=== PATIENT | female | born 1945 | race Caucasian/White ===

== ENCOUNTER 2024-09-07 08:39 | Inpatient (IN) ==
--- NOTE | 2024-09-07 09:02 | Emergency Department Note ---
Impression & Plan Pneumonia, Bronchospasm, Hypoxia ED Provider Note NAME: VJ LATHAM AGE: 78 SEX: F : 1945 ARRIVES VIA: Walk-In INFORMANT: Patient ED PROVIDER(S): Kleber Arce MD CHIEF COMPLAINT: Cough PLAN: Disposition: Admit MEDICAL DECISION MAKING: The patient is a pleasant 78-year-old woman with past medical history of rheumatoid arthritis on methotrexate and hydroxychloroquine as well as with monthly infusions, GERD who presents to Emergency Department via walk-in, accompanied by her for evaluation of ongoing nonproductive cough for the past month where she reports she was seen in this emergency department after a week of symptoms and then had followed up with her primary care doctor last week and had a negative chest x-ray but due to her exam and persistent symptoms was started on doxycycline. She reports she felt some improvement in sinus pressure but denies any change in her cough. She denies any history of environmental or seasonal allergies. She denies any sick contacts. She denies any nausea, vomiting, diarrhea. She denies any fevers or feverishness or chills. On evaluation the patient is no distress, afebrile with heart in the 90s and blood pressure 140s/70s and O2 saturation 94% on room air. Lungs with intermittent wheeze and are otherwise clear bilaterally. She does appear to exhibit some dyspnea when speaking. Otherwise normal work of breathing. EKG without overt acute ischemia. Chest x-ray demonstrates patchy upper lobe airspace opacities further characterized on CT imaging suspicious for pneumonia. WBC, H/H and platelets within normal limits. Chemistry without metabolic acidosis. Electrolytes LFTs without significant abnormality. Positive troponin 3.2, within normal limits. Lipase is normal. Respiratory BioFire was negative. CTA of the chest was performed and was negative for PE but again further characterizes upper lobe airspace opacities with suggestion of developing right upper lobe consolidation. Patient was treated with nasal saline, Flonase, dexamethasone and albuterol MDI and she did feel some improvement. However she was noted to have desaturation to the upper 80s with exertion but initially had recovered to low 90s on room air. However subsequently patient was noted to be hypoxic to 88%. Treatment for pneumonia was initiated with IV ceftriaxone and azithromycin. Initially plan for outpatient follow-up was considered however given the patient's hypoxia which persisted on follow-up ambulatory trial patient does agree with plan for admission for further management. Case was d/w [facility]. Warren [facility] hospitalist who will evaluate the patient for admission. Further management per admitting team. Triage Nursing notes reviewed and agree them. Prior/external medical records reviewed Vital Signs: reviewed Differential diagnosis: Reactive airway disease, pneumonia, pneumothorax, COPD, CHF, infections, cardiac ischemia, pulmonary embolism, musculoskeletal, gastrointestinal, as well as other pathologies. ER treatment provided: See below. Diagnostics interpreted by me: ECG: Normal sinus rhythm, 96 bpm, no ectopy, no overt ST ovation or depression, QTc 434, QRS 82. Cardiac Monitoring: An order for continuous cardiac monitoring was placed and demonstrated Normal sinus rhythm, 96 bpm, no ectopy. Laboratory studies: See below Imaging studies: See below Consultation(s): Dr. Warren [facility] [place] [facility] hospitalist. HPI: The patient is a pleasant 78-year-old woman with past medical history of rheumatoid arthritis on methotrexate and hydroxychloroquine as well as with monthly infusions, GERD who presents to Emergency Department via walk-in, accompanied by her for evaluation of ongoing nonproductive cough for the past month where she reports she was seen in this emergency department after a week of symptoms and then had followed up with her primary care doctor last week and had a negative chest x-ray but due to her exam and persistent symptoms was started on doxycycline. She reports she felt some improvement in sinus pressure but denies any change in her cough. She denies any history of environmental or seasonal allergies. She denies any sick contacts. She denies any nausea, vomiting, diarrhea. She denies any fevers or feverishness or chills. ROS: See above HPI for pertinent positives & negatives. A total of 10 systems reviewed and were otherwise negative. VITALS:See Below PHYSICAL EXAMINATION: GENERAL: Awake, alert, in no distress HENT: Normocephalic, atraumatic. Oropharynx with dry mucous membranes and otherwise unremarkable. EYES: Normal conjunctiva. Sclera non-icteric. NECK: Supple. No nuchal rigidity. FROM. No JVD. RESPIRATORY: Intermittent wheezing otherwise clear to auscultation. Exhibits some dyspnea when speaking. Otherwise normal work of breathing. CARDIAC: Regular rate, normal rhythm. Extremities warm and well perfused. Pulses equal. MUSCULOSKELETAL: Chest examination reveals no tenderness. The back is symmetrical on inspection without obvious abnormality. There is no CVA tenderness to palpation. No joint edema. LOWER EXTREMITIES: Calves are equal size bilaterally and non-tender. No edema. No discoloration. NEURO: Normal sensorium. No sensory or motor deficits noted. SKIN: No rash or jaundice noted. 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 History of skin cancer Medical History Arthritis History of esophageal stricture GERD (gastroesophageal reflux disease) Eli's disease History of Mohs micrographic surgery for skin cancer ON NOSE Macular degeneration "BEGINING STAGES" Anxiety Migraine Hyperlipidemia "BORDERLINE" Hypertension Surgical History History of cataract surgery RT Fusion of spine CERVICAL (GOOD ROM) Family history of reaction to anesthesia MOTHER-SLOW TO WAKE UP H/O tubal ligation History of colonoscopy History of esophagogastroduodenoscopy (EGD) History of tooth extraction History of tonsillectomy and adenoidectomy Family History Other No significant family history Social History Smoking Status: Former smoker Second Hand Exposure: Yes (IN THE PAST ( USED TO SMOKE)); Do You Dip or Chew Tobacco: No; Hx Alcohol Use: No Hx Substance Use: No Preferred Language: Kazakh Communication Ability: Effective Terminal Supervisor Required: No Beliefs That Will Affect Care: None Current Living Situation: Spouse Other Information That Helps Us Care for You: No Feels Safe at Home: Yes Safety Concerns: Feels Safe At This Time Assistive Devices: Glasses Allergies Allergies Allergy/AdvReac Type Severity Reaction Status Date / Time Fxikyge-DSX-[id number] Reductase Allergy Intermediate Muscle Pain Verified 01/12/23 12:54 Inhibitor [Istydjf-Zht-Mrf Reductase Inhibitor] adhesive tape Allergy Mild SKIN Verified 01/12/23 12:54 REDNESS amlodipine [From Norvasc] Allergy Mild Cough Verified 01/12/23 12:54 lisinopril Allergy Mild Cough Verified 01/12/23 12:54 Home Meds Home Medications Medication Instructions Recorded Confirmed aspirin 81 mg tablet,delayed 81 mg PO QAM 07/29/21 09/07/24 release metoprolol succinate 25 mg 25 mg PO QAM 07/29/21 09/07/24 tablet,extended release 24 hr omeprazole 20 mg tablet,delayed 20 mg PO QAM 07/29/21 09/07/24 release sertraline 25 mg tablet 25 mg PO QAM 07/29/21 09/07/24 vitamins A,C,A-hypb-mjatcs 4,296 1 cap PO BID 07/29/21 09/07/24 mcg-226 mg-90 mg capsule (PreserVision AREDS) cholecalciferol (vitamin D3) 25 25 mcg PO DAILY 01/12/23 09/07/24 mcg (1,000 unit) capsule cyanocobalamin (vitamin B-12) 1,000 mcg PO DAILY 01/12/23 09/07/24 1,000 mcg tablet (Vitamin B-12) hydroxychloroquine 200 mg tablet 400 mg PO HS 01/12/23 09/07/24 metronidazole 0.75 % topical cream 1 applic topical DAILY 01/12/23 09/07/24 albuterol sulfate 90 mcg/actuation 1 - 2 inh inhalation .Q6-8H PRN 09/07/24 09/07/24 aerosol inhaler Other doxycycline hyclate 100 mg capsule 100 mg PO BID 09/07/24 09/07/24 folic acid 1 mg tablet 1 mg PO QAM 09/07/24 09/07/24 levothyroxine 75 mcg tablet 88 mcg PO QAM 09/07/24 09/07/24 methotrexate sodium 2.5 mg tablet 2.5 mg PO UD 09/07/24 09/07/24 Previous Rx's Medication Instructions Recorded prednisone 20 mg tablet 60 mg (3 x 20 mg) PO DAILY 4 days 09/07/24 #12 tabs Results & Data (ED) Vital Signs Vital Signs - 24 hr 09/07/24 08:40 09/07/24 08:40 09/07/24 08:41 Temperature 36.4 C L Temperature Source Oral Pulse Rate 96 H Pulse Rate [Exercises] Pulse Rate [Recovery] Pulse Rate from SpO2 Sensor Respiratory Rate 22 Respiratory Rate [Exercises] Respiratory Rate [Recovery] Respiratory Effort / Characteristics Non-Labored Spontaneous SOB on Exertion Respiratory Depth Normal Respiratory Pattern Regular Blood Pressure 145/74 H Blood Pressure Mean 97 Pulse Oximetry 94 Pulse Oximetry [Exercises] Pulse Oximetry [Recovery] Oxygen Delivery Method Room Air Room Air Room Air Oxygen Flow Rate Sepsis Recent Fever Within 48 Hours No Sepsis New/Unexplained Change in Mental Status No Sepsis Action Taken by Nursing No Action Required 09/07/24 09:04 09/07/24 10:13 09/07/24 10:36 Temperature Temperature Source Pulse Rate 94 H 84 Pulse Rate [Exercises] Pulse Rate [Recovery] Pulse Rate from SpO2 Sensor Respiratory Rate 27 H Respiratory Rate [Exercises] 22 Respiratory Rate [Recovery] 20 Respiratory Effort / Characteristics Respiratory Depth Respiratory Pattern Blood Pressure Blood Pressure Mean Pulse Oximetry Pulse Oximetry [Exercises] 88 L Pulse Oximetry [Recovery] 94 Oxygen Delivery Method Room Air Oxygen Flow Rate Sepsis Recent Fever Within 48 Hours Sepsis New/Unexplained Change in Mental Status Sepsis Action Taken by Nursing 09/07/24 11:30 09/07/24 12:30 09/07/24 12:38 Temperature Temperature Source Pulse Rate 86 77 Pulse Rate [Exercises] Pulse Rate [Recovery] Pulse Rate from SpO2 Sensor 85 78 Respiratory Rate 24 21 Respiratory Rate [Exercises] Respiratory Rate [Recovery] Respiratory Effort / Characteristics Respiratory Depth Respiratory Pattern Blood Pressure 142/77 H Blood Pressure Mean 113 Pulse Oximetry 90 95 Pulse Oximetry [Exercises] Pulse Oximetry [Recovery] Oxygen Delivery Method Oxygen Flow Rate Sepsis Recent Fever Within 48 Hours Sepsis New/Unexplained Change in Mental Status Sepsis Action Taken by Nursing 09/07/24 13:09 09/07/24 13:18 09/07/24 13:21 Temperature Temperature Source Pulse Rate 81 78 Pulse Rate [Exercises] Pulse Rate [Recovery] Pulse Rate from SpO2 Sensor 81 78 Respiratory Rate 22 17 Respiratory Rate [Exercises] Respiratory Rate [Recovery] Respiratory Effort / Characteristics Respiratory Depth Respiratory Pattern Blood Pressure Blood Pressure Mean Pulse Oximetry 95 92 92 Pulse Oximetry [Exercises] Pulse Oximetry [Recovery] Oxygen Delivery Method Room Air Oxygen Flow Rate Sepsis Recent Fever Within 48 Hours Sepsis New/Unexplained Change in Mental Status Sepsis Action Taken by Nursing 09/07/24 13:30 09/07/24 13:36 09/07/24 13:41 Temperature Temperature Source Pulse Rate Pulse Rate [Exercises] 91 H Pulse Rate [Recovery] 81 Pulse Rate from SpO2 Sensor Respiratory Rate Respiratory Rate [Exercises] 26 H Respiratory Rate [Recovery] 26 H Respiratory Effort / Characteristics Respiratory Depth Respiratory Pattern Blood Pressure 139/78 Blood Pressure Mean 102 Pulse Oximetry 94 Pulse Oximetry [Exercises] 86 L Pulse Oximetry [Recovery] 90 Oxygen Delivery Method Room Air Nasal Cannula Oxygen Flow Rate 2 Sepsis Recent Fever Within 48 Hours Sepsis New/Unexplained Change in Mental Status Sepsis Action Taken by Nursing 09/07/24 13:42 09/07/24 13:55 09/07/24 13:57 Temperature Temperature Source Pulse Rate 89 81 79 Pulse Rate [Exercises] Pulse Rate [Recovery] Pulse Rate from SpO2 Sensor 91 H 80 Respiratory Rate 23 25 H Respiratory Rate [Exercises] Respiratory Rate [Recovery] Respiratory Effort / Characteristics Respiratory Depth Respiratory Pattern Blood Pressure Blood Pressure Mean Pulse Oximetry 93 95 Pulse Oximetry [Exercises] Pulse Oximetry [Recovery] Oxygen Delivery Method Oxygen Flow Rate Sepsis Recent Fever Within 48 Hours Sepsis New/Unexplained Change in Mental Status Sepsis Action Taken by Nursing 09/07/24 14:00 09/07/24 14:03 Temperature Temperature Source Pulse Rate 81 Pulse Rate [Exercises] Pulse Rate [Recovery] Pulse Rate from SpO2 Sensor 80 Respiratory Rate 26 H Respiratory Rate [Exercises] Respiratory Rate [Recovery] Respiratory Effort / Characteristics Respiratory Depth Respiratory Pattern Blood Pressure 140/79 Blood Pressure Mean 109 Pulse Oximetry 95 Pulse Oximetry [Exercises] Pulse Oximetry [Recovery] Oxygen Delivery Method Oxygen Flow Rate Sepsis Recent Fever Within 48 Hours Sepsis New/Unexplained Change in Mental Status Sepsis Action Taken by Nursing Laboratory Data Attestation: I reviewed the patient's lab results. 09/07/24 09:13 09/07/24 09:13 Lab Results 09/07/24 09/07/24 Range/Units 09:13 10:29 WBC 7.56 (4.8-10.8) K/ul RBC 4.11 L (4.20-5.40) M/uL Hgb 13.1 (12.0-16.0) g/dl Hct 39.1 (37.0-47.0) % MCV 95.1 (80.0-100.0) fL MCH 31.9 (25.0-34.0) pg MCHC 33.5 (32.0-36.0) g/dL RDW Std Deviation 48.3 H (36.4-46.3) fL RDW Coeff of Ronda 14.0 (11.5-14.5) % Plt Count 225 (130-400) K/uL MPV 9.9 (9.4-12.4) fL Immature Gran % (Auto) 0.9 % Neut % (Auto) 66.0 % Lymph % (Auto) 16.5 % Summers % (Auto) 15.2 % Eos % (Auto) 0.7 % Baso % (Auto) 0.7 % Neut # (Auto) 4.99 (1.40-6.50) K/uL Lymph # (Auto) 1.25 (1.20-3.40) K/uL Summers # (Auto) 1.15 H (0.11-0.59) K/uL Eos # (Auto) 0.05 (0.00-0.50) K/uL Baso # (Auto) 0.05 (0.00-0.20) K/uL Immature Gran # (Auto) 0.07 (0.01-0.20) K/uL PT Cancelled 11.0 INR Cancelled 1.0 Sodium 137 (136-145) mmol/L Potassium 3.9 (3.5-5.1) mmol/L Chloride 105 (98-107) mmol/L Carbon Dioxide 23 (21-32) mmol/L Anion Gap 9 (3-11) BUN 9 (6-23) mg/dl Creatinine 0.66 (0.6-1.2) mg/dl Est Cr Clr Drug Dosing 69.7 ml/min eGFR 90.29 BUN/Creatinine Ratio 13.6 (10-20) Glucose 105 H (70-99(Fasting)) mg/dl Calcium 9.5 (8.6-10.3) mg/dl Magnesium 2.1 (1.7-2.4) mg/dl Total Bilirubin 0.6 (0.2-1.0) mg/dl AST 23 (13-39) U/L ALT 16 (7-52) U/L Alkaline Phosphatase 49 (34-104) U/L Troponin I High Sens 3.2 (0-14) pg/ml Total Protein 6.6 (6.0-8.3) gm/dl Albumin 4.0 (3.4-5.0) gm/dl Globulin 2.6 (2.5-4.0) gm/dl Albumin/Globulin Ratio 1.5 (0.9-2) Lipase 21 (11-82) U/L Adenovirus (PCR) Not Detected (NotDetected) B. pertussis DNA (PCR) Not Detected (NotDetected) B.parapertussis DNA PCR Not Detected (NotDetected) C. pneumoniae DNA (PCR) Not Detected (NotDetected) Coronavirus OC43 (PCR) Not Detected (NotDetected) Coronavirus HKU1 (PCR) Not Detected (NotDetected) Coronavirus 229E (PCR) Not Detected (NotDetected) SARS-CoV-2 (PCR) Not Detected (NotDetected) Coronavirus NL63 (PCR) Not Detected (NotDetected) Human Metapneumovir PCR Not Detected (NotDetected) Influenza Type A (PCR) Not Detected (NotDetected) Influenza Type B (PCR) Not Detected (NotDetected) M. pneumoniae (PCR) Not Detected (NotDetected) Parainfluenza 1 (PCR) Not Detected (NotDetected) Parainfluenza 2 (PCR) Not Detected (NotDetected) Parainfluenza 3 (PCR) Not Detected (NotDetected) Parainfluenza 4 (PCR) Not Detected (NotDetected) RSV (PCR) Not Detected (NotDetected) Entero/Rhino (PCR) Not Detected (NotDetected) Administered Medications Acetaminophen (Acetaminophen 325 Mg Tab) 650 mg PO Q4H PRN PRN Reason: Pain or Fever Stop: 10/07/24 14:22 Last Admin: 09/07/24 21:12 Dose: 650 mg Documented By: SMD Acetylcysteine (Acetylcysteine 20% Inhal Soln 4ml Dispensed By Resp.) 5 ml INH Q12H ESPERANZA Stop: 10/07/24 14:44 Last Admin: 09/07/24 17:17 Dose: Not Given Documented By: EAM Albuterol (Albuterol 0.5% Neb Soln 2.5 Mg/0.5 Ml Vial) 2.5 mg NEB QID PRN; Protocol PRN Reason: sob, wheezing Stop: 10/07/24 20:59 Last Admin: 09/07/24 20:52 Dose: 2.5 mg Documented By: LGB Benzonatate (Benzonatate 100 Mg Capsule) 100 mg PO TID ESPERANZA Stop: 10/07/24 20:59 Last Admin: 09/07/24 21:13 Dose: 100 mg Documented By: SEBASTIAN Guaifenesin (Guaifenesin 600 Mg Tabcr) 600 mg PO Q12 ESPERANZA Stop: 10/07/24 20:59 Last Admin: 09/07/24 21:12 Dose: 600 mg Documented By: SEBASTIAN Heparin Sodium (Porcine) (Heparin Sod 5,000 Unit/0.5 Ml Vial) 5,000 units SQ Q12 ESPERANZA Stop: 10/07/24 20:59 Last Admin: 09/07/24 21:14 Dose: 5,000 units Documented By: SEBASTIAN Hydroxychloroquine Sulfate (Hydroxychloroquine Sulfate 200 Mg Tab) 400 mg PO HS ESPERANAZ Stop: 10/07/24 20:59 Last Admin: 09/07/24 21:13 Dose: 400 mg Documented By: SEBASTIAN Lactobacillus Acidophilus (Advanced Probiotic 625 Mg Capsule) 1,250 mg PO DAILY ESPERANZA Stop: 10/07/24 14:29 Last Admin: 09/07/24 21:13 Dose: 1,250 mg Documented By: SEBASTIAN Sodium Chloride (Sodium Chlor 7% 4 Ml Neb) 4 ml NEB BIDR ESPERANZA Stop: 10/07/24 14:39 Last Admin: 09/07/24 20:52 Dose: 4 ml Documented By: Admin: 09/07/24 17:17 Dose: Not Given Documented By: EAM Discontinued Medications Albuterol (Albuterol Hfa 8 Gm Inhaler) 2 puffs INH NOW ONE Stop: 09/07/24 09:23 Last Admin: 09/07/24 09:29 Dose: 2 puffs Documented By: ROMINA Azithromycin (Azithromycin 250 Mg Tab) 500 mg PO NOW ONE Stop: 09/07/24 12:27 Last Admin: 09/07/24 12:40 Dose: 500 mg Documented By: CEF Dexamethasone Sodium Phosphate (DexamethasonePf 10 Mg/Ml Vial) 10 mg IV NOW ONE Stop: 09/07/24 09:23 Last Admin: 09/07/24 09:29 Dose: 10 mg Documented By: ROMINA Fluticasone Propionate (Fluticasone Propionate Na Spr 16 Gm Btl) 2 sprays NA NOW STA Stop: 09/07/24 09:21 Last Admin: 09/07/24 10:11 Dose: 2 sprays Documented By: ROMINA Ceftriaxone Sodium (Rocephin) 2,000 mg in 50 mls @ 100 mls/hr IV NOW STA Stop: 09/07/24 12:55 Last Infusion: 09/07/24 13:11 Dose: Infused Documented By: Admin: 09/07/24 12:39 Dose: 100 mls/hr Documented By: CEF Ioversol (Optiray 320 125ml) 120 ml IV ONCE ONE Stop: 09/07/24 10:05 Last Admin: 09/07/24 10:04 Dose: 120 ml Documented By: ARABELLA Loratadine (Loratadine 10 Mg Tab) 10 mg PO NOW ONE Stop: 09/07/24 09:21 Last Admin: 09/07/24 09:29 Dose: 10 mg Documented By: ROMINA Sodium Chloride (Sodium Chloride 0.65% Na Soln 45 Ml ([place])) 2 sprays NA NOW ONE Stop: 09/07/24 09:21 Last Admin: 09/07/24 09:29 Dose: 2 sprays Documented By: ROMINA Imaging Data Radiologist's Impression: Chest X-Ray 09/07/24 08:53 XR chest 1V portable CLINICAL HISTORY: Chest pain, nonspecific COMPARISON STUDY: Chest radiograph August 22, 2024. FINDINGS: Lung volumes are mildly diminished but there is no pneumothorax or pleural effusion. Cardiomediastinal silhouette is stable. Subtle interstitial thickening has slightly increased. There may be patchy bilateral upper lung opacities. IMPRESSION: Apparent patchy bilateral upper lung opacities which may reflect an infectious process. Radiographic follow-up to ensure resolution is recommended ACT 112: Negative or not required by law. Electronically signed by: Sriram Herr M.D. 09/07/2024 9:27 AM Chest CTA 09/07/24 09:16 CT ANGIOGRAPHY OF THE CHEST, PULMONARY EMBOLUS PROTOCOL CLINICAL HISTORY: sob, tachycardia, chest tightness, cough, r/o PE COMPARISON STUDY: Chest radiograph August 22, 2024 and chest radiograph performed earlier today. TECHNIQUE: Following IV administration of 120 mL of Optiray, helical axial images of the chest were obtained utilizing the pulmonary embolus protocol. Maximal intensity projections and sagittal and coronal reformats were viewed on an independent 3D workstation. IV contrast was administered without complication. Automated exposure control was utilized for the study. A dose lowering technique was utilized adhering to the principles of ALARA. CT DOSE: 863.64 mGy.cm FINDINGS: No pulmonary emboli are identified. There is no thoracic aortic dissection. Size of the heart is normal. No enlarged mediastinal, hilar or axillary lymph nodes are present. There is no pneumothorax or pleural effusion. Upper lobe predominant groundglass opacities within the lungs are noted with areas of developing consolidation within the right upper lobe. This no central obstructing mass is present. There is no cavitation. There is no pneumothorax or pleural effusion. Hepatic steatosis is incidentally noted. There is a 1.5 cm splenule. IMPRESSION: 1. No pulmonary emboli identified. 2. Upper lobe predominant groundglass opacities with areas of developing consolidation within the right upper lobe suggestive of an infectious process. Radiographic follow-up to ensure resolution is recommended. 3. Hepatic steatosis. ACT 112: Negative or not required by law. Electronically signed by: Sriram Herr M.D. 09/07/2024 10:24 AM Discharge Plan Visit Data Chief Complaint: Shortness of Breath/Dyspnea Stated Complaint: SOB, COUGHING 4WKS ED Provider: Kleber Arce Discharge Problem: Pneumonia, Bronchospasm, Hypoxia Patient Disposition: Admitted As Inpatient Discharge Instructions Interventions: ED Discharge Assessment Last Done: 09/07/24 16:28 Discharge Problem: Pneumonia Qualifiers: Pneumonia type: due to unspecified organism Laterality: bilateral Lung location: upper lobe of lung Qualified Code(s): J18.9 - Pneumonia, unspecified organism
[2024-09-07] MEDS: dexAMETHasone**PF** 10 MG/ML VIAL IV ONE (09:29)
[2024-09-07] MEDS: LORATADINE 10 MG TAB PO ONE (09:29)
[2024-09-07] MEDS: SODIUM CHLORIDE 0.65% NA SOLN 45 ML (OCEAN) ONE (09:29)
[2024-09-07] MEDS: ALBUTEROL HFA 8 GM INHALER INH ONE (09:29)
--- NOTE | 2024-09-07 09:29 | XRay Report ---
XR chest 1V portable CLINICAL HISTORY: Chest pain, nonspecific COMPARISON STUDY: Chest radiograph August 22, 2024. FINDINGS: Lung volumes are mildly diminished but there is no pneumothorax or pleural effusion. Cardio mediastinal silhouette is stable. Subtle interstitial thickening has slightly increased. There may be patchy bilateral upper lung opacities. IMPRESSION: Apparent patchy bilateral upper lung opacities which may reflect an infectious process. Radiographic follow-up to ensure resolution is recommended ACT 112: Negative or not required by law. Electronically signed by: Sriram Herr M.D. 09/07/2024 9:27 AM
[2024-09-07 09:41] LABS: Basophils # (auto) 0.05 K/uL (0.00-0.20); Basophils % (auto) 0.7 %; Eosinophils # (auto) 0.05 K/uL (0.00-0.50); Eosinophils % (auto) 0.7 %; Hematocrit (blood only) 39.1 % (37.0-47.0); Hemoglobin 13.1 g/dl (12.0-16.0); Immature Granulocytes # (auto) 0.07 K/uL (0.01-0.20); Immature Granulocytes % (auto) 0.9 %; Lymphocytes # (auto) 1.25 K/uL (1.20-3.40); Lymphocytes % (auto) 16.5 %; Mean Corpuscular Hemoglobin 31.9 pg (25.0-34.0); Mean Corpuscular Hgb Conc 33.5 g/dL (32.0-36.0); Mean Corpuscular Volume 95.1 fL (80.0-100.0); Mean Platelet Volume 9.9 fL (9.4-12.4); Monocytes # (auto) 1.15 K/uL (0.11-0.59); Monocytes % (auto) 15.2 %; Neutrophils # (auto) 4.99 K/uL (1.40-6.50); Platelet Count 225 K/uL (130-400); RDW Standard Deviation 48.3 fL (36.4-46.3); Red Blood Count 4.11 M/uL (4.20-5.40); White Blood Count 7.56 K/ul (4.8-10.8)
[2024-09-07 09:53] LABS: Albumin Globulin Ratio 1.5 (0.9-2); BUN Creatinine Ratio 13.6 (10-20); Bilirubin,Total 0.6 mg/dl (0.2-1.0); Calcium 9.5 mg/dl (8.6-10.3); Creatinine Clr Calc Pharmacy 69.7 ml/min; Globulin 2.6 gm/dl (2.5-4.0); Magnesium 2.1 mg/dl (1.7-2.4); Potassium 3.9 mmol/L (3.5-5.1); Total Protein 6.6 gm/dl (6.0-8.3)
[2024-09-07 10:00] LABS: Troponin I High Sensitivity 3.2 pg/ml (0-14)
[2024-09-07] MEDS: OPTIRAY 320 125ml IV ONE (10:04)
[2024-09-07] MEDS: FLUTICASONE PROPIONATE NA SPR 16 GM BTL STA (10:11)
[2024-09-07 10:22] LABS: Adenovirus PCR Not Detected (NotDetected); Bordetella parapertussis PCR Not Detected (NotDetected); Bordetella pertussis PCR Not Detected (NotDetected); Chlamydia pneumoniae PCR Not Detected (NotDetected); Coronavirus 229E PCR Not Detected (NotDetected); Coronavirus CoV-2 (COVID19)PCR Not Detected (NotDetected); Coronavirus HKU1 PCR Not Detected (NotDetected); Coronavirus NL63 PCR Not Detected (NotDetected); Coronavirus OC43PCR Not Detected (NotDetected); Human Metapneumovirus PCR Not Detected (NotDetected); Influenza A PCR Not Detected (NotDetected); Influenza B PCR Not Detected (NotDetected); Mycoplasma pneumoniae PCR Not Detected (NotDetected); Parainfluenza Virus 1 PCR Not Detected (NotDetected); Parainfluenza Virus 2 PCR Not Detected (NotDetected); Parainfluenza Virus 3 PCR Not Detected (NotDetected); Parainfluenza Virus 4 PCR Not Detected (NotDetected); Respiratory Syncytial VirusPCR Not Detected (NotDetected); Rhinovirus/Enterovirus PCR Not Detected (NotDetected)
--- NOTE | 2024-09-07 10:25 | CT Scan Report ---
CT ANGIOGRAPHY OF THE CHEST, PULMONARY EMBOLUS PROTOCOL CLINICAL HISTORY: sob, tachycardia, chest tightness, cough, r/o PE COMPARISON STUDY: Chest radiograph August 22, 2024 and chest radiograph performed earlier today. TECHNIQUE: Following IV administration of 120 mL of Optiray, helical axial images of the chest were o btained utilizing the pulmonary embolus protocol. Maximal intensity projections and sagittal and cor onal reformats were viewed on an independent 3D workstation. IV contrast was administered without co mplication. Automated exposure control was utilized for the study. A dose lowering technique was ut ilized adhering to the principles of ALARA. CT DOSE: 863.64 mGy.cm FINDINGS: No pulmonary emboli are identified. There is no thoracic aortic dissection. Size of the he art is normal. No enlarged mediastinal, hilar or axillary lymph nodes are present. There is no pneumo thorax or pleural effusion. Upper lobe predominant groundglass opacities within the lungs are noted w ith areas of developing consolidation within the right upper lobe. This no central obstructing mass i s present. There is no cavitation. There is no pneumothorax or pleural effusion. Hepatic steatosis is incidentally noted. There is a 1.5 cm splenule. IMPRESSION: 1. No pulmonary emboli identified. 2. Upper lobe predominant groundglass opacities with areas of developing consolidation within the rig ht upper lobe suggestive of an infectious process. Radiographic follow-up to ensure resolution is rec ommended. 3. Hepatic steatosis. ACT 112: Negative or not required by law. Electronically signed by: Sriram Herr M.D. 09/07/2024 10:24 AM
[2024-09-07] MEDS: cefTRIAXone SODIUM 2,000 MG/50 ML BAG IV STA (12:39)
[2024-09-07] MEDS: AZITHROMYCIN 250 MG TAB PO ONE (12:40)
[2024-09-07] MEDS ORDERED: ALUMINUM/MAGNESIUM SUSP 30 ML UDC PO PRN (14:23)
[2024-09-07] MEDS ORDERED: MAGNESIUM HYDROXIDE SUSP 30 ML UDC PO PRN (14:23)
--- NOTE | 2024-09-07 14:43 | History & Physical Report ---
Date of Service September 07, 2024 Assessment & Plan (1) Right upper lobe pneumonia: Plan 78-year-old lady will be managed for the following: Right upper lobe pneumonia Patient presenting with cough for about a month time, failure of outpatient treatment. See HPI. Admitting WBC WNL, respiratory viral panel negative. Admitting CXR: Patchy bilateral upper lung opacities suggestive of infectious process. Admitting CT chest: No PE. Bilateral upper lobe opacities with areas of developing consolidation within the right upper lobe suggestive of an infectious process. Patient received azithromycin, Rocephin, steroids in the ED. Patient needing 2 L nasal cannula oxygen at ED. On exam, patient was not bronchospastic, will continue with azithromycin and Rocephin. Will send for sputum culture if patient able to expectorate. Will use hypertonic saline and mucomyst nebs to help w/ expectoration. Mucinex, Tessalon Perles, Incentive spirometer as tolerable.Flonase. Patient not on home oxygen, currently requiring 2 L oxygen, wean down as tolerated. Patient will need repeat CT scan of the chest in about 6 weeks time to document resolution of pneumonia. Patient and her has been made aware about this. If not improving or worsening respiratory status, consider consulting pulmonology Other chronic medical assessment: HTN, HLD, rheumatoid arthritis, rosacea -- > continue with/resume home meds as and when able. Patient's methotrexate on hold because of ongoing infection per patient. DVT prophylaxis: Heparin subcu Full code History of Present Illness Chief Complaint: cough Primary Care Provider: Rosario Gallagher DO 78-year-old lady with PMH of HTN, HLD, acquired hypothyroidism, Raynaud's disease without gangrene, GERD, seborrheic dermatitis, generalized osteoarthritis, seronegative rheumatoid arthritis, rosacea, squamous cell carcinoma skin presented to the ED 09/07 with complaint of worsening cough and shortness of breath. Patient reports having cough since about 4 weeks, she was evaluated in the ED around 2.5 weeks ago and was discharged on Tessalon Perles/ inhalers/prednisone, patient reports she felt better for about 3 days, then she started worsening with cough and shortness of breath. She visited her PCP last Tuesday and was prescribed doxycycline and Mucinex. She continued to have worsening cough and shortness of breath with activity, hence decided to present to the ED. She had taken about 4 days of doxycycline prior to arrival. Patient denies fever or sore throat, reports mostly dry cough. Patient denies nausea, vomiting, acute changes in her bowel or bladder habit, abdominal pain, chest pain, palpitation. Patient does report feeling weaker, getting occasional headache and dizziness. Patient reports quitting smoking about 50 years ago, denies alcohol and recreational drug use. Full code as per my discussion with the patient. Medications reviewed with the patient at the bedside. Plan of care discussed with the patient and her at bedside in detail, they voiced understanding. Allergies Allergy/AdvReac Type Severity Reaction Status Date / Time Zdjhqjs-CKE-ZuG Reductase Allergy Intermediate Muscle Pain Verified 01/12/23 12:54 Inhibitor [Tuidbnb-Fpy-Lut Reductase Inhibitor] adhesive tape Allergy Mild SKIN Verified 01/12/23 12:54 REDNESS amlodipine [From Norvas] Allergy Mild Cough Verified 01/12/23 12:54 lisinopril Allergy Mild Cough Verified 01/12/23 12:54 Home Medications Medication Instructions Recorded Confirmed Type aspirin 81 mg tablet,delayed 81 mg PO QAM 07/29/21 09/07/24 History release metoprolol succinate 25 mg 25 mg PO QAM 07/29/21 09/07/24 History tablet,extended release 24 hr omeprazole 20 mg tablet,delayed 20 mg PO QAM 07/29/21 09/07/24 History release sertraline 25 mg tablet 25 mg PO QAM 07/29/21 09/07/24 History vitamins A,C,W-pcie-pcreoq 4,296 1 cap PO BID 07/29/21 09/07/24 History mcg-226 mg-90 mg capsule (PreserVision AREDS) cholecalciferol (vitamin D3) 25 25 mcg PO DAILY 01/12/23 09/07/24 History mcg (1,000 unit) capsule cyanocobalamin (vitamin B-12) 1,000 mcg PO DAILY 01/12/23 09/07/24 History 1,000 mcg tablet (Vitamin B-12) hydroxychloroquine 200 mg tablet 400 mg PO HS 01/12/23 09/07/24 History metronidazole 0.75 % topical cream 1 applic topical DAILY 01/12/23 09/07/24 History albuterol sulfate 90 mcg/actuation 1 - 2 inh inhalation .Q6-8H PRN 09/07/24 09/07/24 History aerosol inhaler Other azithromycin 250 mg tablet 250 mg PO DAILY 4 days #4 tabs 09/07/24 Rx cefdinir 300 mg capsule 300 mg PO BID 7 days #14 caps 09/07/24 Rx doxycycline hyclate 100 mg capsule 100 mg PO BID 09/07/24 09/07/24 History folic acid 1 mg tablet 1 mg PO QAM 09/07/24 09/07/24 History levothyroxine 75 mcg tablet 88 mcg PO QAM 09/07/24 09/07/24 History methotrexate sodium 2.5 mg tablet 2.5 mg PO UD 09/07/24 09/07/24 History prednisone 20 mg tablet 60 mg (3 x 20 mg) PO DAILY 4 days 09/07/24 Rx #12 tabs Past Med/Surg History Problem List (Updated 09/07/24 @ 14:44 by Cheryl So MD) Right upper lobe pneumonia Bronchospasm (Acute) Pneumonia (Acute) Nonspecific paroxysmal spell Hypothyroidism 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 History of skin cancer Medical History Anxiety Arthritis GERD (gastroesophageal reflux disease) Eli's disease History of esophageal stricture History of Mohs micrographic surgery for skin cancer ON NOSE History of skin cancer Hyperlipidemia "BORDERLINE" Hypertension Macular degeneration "BEGINING STAGES" Migraine Surgical History Family history of reaction to anesthesia MOTHER-SLOW TO WAKE UP Fusion of spine CERVICAL (GOOD ROM) H/O tubal ligation History of cataract surgery RT History of colonoscopy History of esophagogastroduodenoscopy (EGD) History of tonsillectomy and adenoidectomy History of tooth extraction Family History Other No significant family history Social History Smoking Status: Former smoker Second Hand Exposure: Yes (IN THE PAST ( USED TO SMOKE)); Do You Dip or Chew Tobacco: No; Hx Alcohol Use: No Hx Substance Use: No Preferred Language: Tongan Chief Financial Officer Required: No Beliefs That Will Affect Care: None Current Living Situation: Spouse Feels Safe at Home: Yes Assistive Devices: Glasses Review of Systems Review of Systems: Negative otherwise mentioned in HPI. Physical Exam Physical Exam: GENERAL: Alert and oriented x3. NAD, on 2L HEENT: No pallor, no icterus. Pupils equal, round and reactive to light. Oral mucosa moist. NECK: No JVD, no neck masses. HEART: S1 and S2 heard. Regular rate and rhythm. No murmur, no gallop. RESPIRATORY SYSTEM: Normal AP diameter. No accessory muscle use. No wheezing, no crackles - not appreciated in RUL as well. ABDOMEN: Soft, bowel sounds present, nontender, no distention. CENTRAL NERVOUS SYSTEM: No facial droop. Speech is clear. Obeys simple commands. Moves extremities. EXTREMITIES: No edema, no erythema seen. Results & Data Results & Data Vital Signs (Past 12 Hours) Vital Signs Temp Pulse Pulse Pulse Resp Resp Resp 09/07/24 13:55 81 09/07/24 13:41 09/07/24 13:36 91 H 81 26 H 26 H 09/07/24 13:18 09/07/24 10:13 22 20 09/07/24 09:04 94 H 09/07/24 08:41 36.4 C L 96 H 22 09/07/24 08:40 09/07/24 08:40 BP Pulse Ox Pulse Ox Pulse Ox O2 Del Method O2 Flow Rate 09/07/24 13:55 09/07/24 13:41 94 Nasal Cannula 2 09/07/24 13:36 86 L 90 Room Air 09/07/24 13:18 92 Room Air 09/07/24 10:13 88 L 94 Room Air 09/07/24 09:04 09/07/24 08:41 145/74 H 94 Room Air 09/07/24 08:40 Room Air 09/07/24 08:40 Room Air
--- NOTE | 2024-09-07 14:53 | Electrocardiogram Report ---
Test Reason : Blood Pressure : */* mmHG Vent. Rate : 96 BPM Atrial Rate : 96 BPM P-R Int : 138 ms QRS Dur : 82 ms QT Int : 344 ms P-R-T Axes : 1 37 37 degrees QTcB Int : 434 ms Normal sinus rhythm Normal ECG No previous ECGs available Confirmed by Marcel Vargas ([id number]) on 09/07/2024 2:53:12 PM Referred By: REFERRED SELF Confirmed By: Marcel Vargas
[2024-09-07] MEDS: ACETYLCYSTEINE 20% INHAL SOLN 4ML ***DISPENSED BY RESP. INH SCH (17:17)
[2024-09-07] MEDS: SODIUM CHLOR 7% 4 ML NEB NEB SCH (17:17)
[2024-09-07] MEDS ORDERED: INFLUENZA VACC TS2024-25(65y+)/PF (IIV3) 0.5mL Syr IM ONE (17:22)
--- OUTSIDE RECORDS SUMMARY | 2024-09-07 17:49 | External Medical Summary | Summary of Care ---
Author Name Unknown Organization [facility] Address [address] [facility] [place] [address] Phone [phone] Care Team Providers Care Safety Engineer Pressure Vessels Name Role Phone Rosario Gallagher DO Primary Care Provider Encounter Details Date Type Department Care Team (Late st Contact Info) Description 09/06/2024 Orders Only Rheumatology [place] [address] [address] [place] [address] Rajan Mitchell CRNP [facility] [employer] [place] [address] Allergies Active Allergy Reactions Criticality Noted Date Comments Eye Lubricant 04/24/2024 Lisinopril 04/04/2018 cough Amlodipine 04/04/2018 edema Rosuvastatin 03/11/2022 Other reaction(s): muscle symptoms Adhesive Tape 02/12/2015 redness documented as of this encounter (statuses as of 09/06/2024) Medications Medication Sig Dispensed Refills Start Date End Date Status ASPIRIN 81 MG PO TABS 1 tab daily Active METRONIDAZOLE 0.75 % EX CREAIndications:Ros acea Apply twice daily 45 g 5 02/12/2015 Active Acetaminophen ER 650 MG Oral Tablet Extended Release Take by mouth. 2 daily Active Vitamin D, Cholecalciferol, 1000 units TABS Take by mouth. 2 tabs daily 08/10/2016 Active B-12 1000 MCG Oral Capsule Take 1 Capsule by mouth in the morning. Active PreserVision AREDS 2+Multi Vit Oral Capsule Take by mouth. Active Hydroxychloroquine Sulfate 200 MG Oral Tablet (Plaquenil) Take 2 Tablets by mouth in the morning. 180 Tablet 3 11/02/2023 Active Folic Acid 1 MG Oral Tablet Take 1 Tablet by mouth in the morning. 90 Tablet 4 12/03/2023 Active Magnesium 200 MG Oral Tablet Chewable Take by mouth. Active Multivitamin Adult Oral Tablet Chewable Take by mouth. Active Omeprazole 20 MG Oral Capsule Delayed Release (PriLOSEC)Indicatio ns:Gastroesophageal reflux disease, unspecified whether esophagitis present TAKE 1 CAPSULE BY MOUTH EVERY MORNING 90 Capsule 3 04/02/2024 Active Levothyroxine Sodium 88 MCG Oral Tablet (Synthroid) Take 1 Tablet by mouth in the morning. (at least 30 min prior to breakfast or other meds). 30 Tablet 11 04/02/2024 Active Tacrolimus 0.1 % External Ointment Start: 10/26/23 11:00:00 EST, 1 appl, topical, bid, Disp# 30 g, To rash on nipple BID PRN 10/26/2023 Active Artificial Tears 83-15 % Ophthalmic Ointment every night at bedtime. Active Sertraline HCl 25 MG Oral Tablet (Zoloft)Indications :Mood disorder of depressed type TAKE 1 TABLET BY MOUTH EVERY MORNING 90 Tablet 3 05/08/2024 Active Methotrexate Sodium 2.5 MG Oral Tablet Take 8 Tablets by mouth once a week. 80 Tablet 1 07/18/2024 Active Metoprolol Succinate ER 25 MG Oral Tablet Extended Release 24 Hour (toPROL XL)Indications:HTN, goal below 140/90 TAKE 1 TABLET BY MOUTH EVERY MORNING 90 Tablet 1 07/31/2024 Active Albuterol Sulfate HFA 108 (90 Base) MCG/ACT Inhalation Aerosol Solution Inhale 2 Puffs by mouth in the morning and 2 Puffs at noon and 2 Puffs in the evening and 2 Puffs before bedtime. 08/22/2024 Active Doxycycline Hyclate 100 MG Oral CapsuleIndications: Bronchitis, complicated Take 1 Capsule by mouth in the morning and 1 Capsule before bedtime. Do all this for 10 days. Until gone.. 20 Capsule 09/03/2024 09/13/2024 Active documented as of this encounter (statuses as of 09/06/2024) Active Problems Problem Noted Date Diagnosed Date Seronegative rheumatoid arthritis 05/25/2024 Rheumatoid arthritis 02/29/2024 Raynaud's disease without gangrene 02/23/2023 Gastroesophageal reflux disease 03/11/2022 Dyslipidemia, goal LDL below 70 03/11/2022 Mood disorder of depressed type 03/11/2022 High risk for fracture due to osteoporosis by DE XA scan 03/11/2022 Acquired hypothyroidism 03/11/2022 HTN, goal below 140/90 03/11/2022 Generalized osteoarthritis 03/18/2015 Verruca 02/12/2015 History of squamous cell carcinoma of skin 02/12 Other seborrheic keratosis 02/12/2015 Seborrheic dermatitis 02/12/2015 Overview: ICD-10 update of inactive term Rosacea 02/12/2015 documented as of this encounter (statuses as of 09/06/2024) Resolved Problems Problem Noted Date Diagnosed Date Resolved Date Comedone 02/12/2015 03/11/2022 documented as of this encounter (statuses as of 09/06/2024) Immunizations Name Administration Dates Next Due COVID-19 mRNA, LNP-s, No Pre serve, 2-Dose Series ([employer]) 09/30/2021,02/14/2021,02/14/2021,01/24 Pneumococcal Polysaccharide PPV23 (Pneumovax) 11/15/2014 Seasonal Influenza, PF, 6 M & above, IM , (FluLaval or Fluzone) 08/23/2022 Seasonal Influenza, Quadrivalent, ID 08/29/2023 TDAP (age 10 and older)(Boostrix) 06/25/2011 documented as of this encounter Social History Tobacco Use Types Packs/Day Years Used Date Smoking Tobacco: Former Cigarettes 0.5 5 Smokeless Tobacco: Never Comments:Quit 50 years ago o r more Alcohol Use Standard Drinks/Week Comments Not Currently 0 (1 standard drink = 0.6 oz pur e alcohol) Utilities Answer Date Recorded Do you have trouble paying y our heating, water, or electric bill? (Adult - for ages 18 years and over) Not on file 05/15/2024 Is your family able to pay t he heat, water, or electric bill? (Household - for ages 0-17 years) Not on file 05/15/2024 Does your family have access to good internet? (Household - for ages 0-17 years) Not on file 05/15/2024 Social Connections Answer Date Recorded How often do you feel lonely or isolated from those around you? (Adult - for ages 18 years and over) Not on file 05/15/2024 Sex and Gender Information Value Date Recorded Sex Assigned at Female 10/30/2023 7:38 PM EST Gender Identity Female 10/30/2023 7:38 PM EST Sexual Orientation Straight 10/30/2023 7: 38 PM EST Job Start Date Occupation Industry Not on file Not on file Not on file documented as of this encounter Plan of Treatment Upcoming Encounters Date Type Department Care Team (Late st Contact Info) Description 09/24/2024 8:30 AM EDT Hem/Onc Treatment Hematology/Oncology Treatment, [place] [address] [place] [phone] Nicci, Chair [address] [place] [address] 11/30/2024 10:00 AM EST Office Visit Family Practice [facility] [address] [place] [address] Rosario Gallagher DO [address] [place] [id number] 12/12/2024 10:30 AM EST Office Visit Rheumatology [place] [id number] Swathi Biswas [place] [address] Rajan Mitchell CRNP [address] [place] [address] Health Maintenance Due Date Last Done Comments Depression Monitoring 1957 Zoster Vaccines (1 of 2) 1965 Hepatitis B Vaccine (2 of 3 - 19+ 3-dose series) 03/22/2006 02/22/2006, 02/21/2006 Adult Wellness Visit 2012 DTap/Tdap Vaccines (2 - Td or Tdap) 06/25/2021 06/25/2011 *BASELINE EKG FOR HTN 03/25/2022 *BISPHONATE OR OTHER ACCEPTABLE MEDICATION NEEDED FOR OSTEOPOROSIS (REFER TO SMARTSET #1146) 09/17/2022 COVID-19 Vaccine ( season) 2024 09/30/2021, 02/14/2021, 02/14/2021, Additional history exists Influenza Vaccine (FLU shot) (#1) 2024 08/29/2023, 08/23/2022 GFR 07/13/2025 07/13/2024, 05/0 01/2024, 01/02/2024, Additional history exists TSH 07/13/2025 07/13/2024, 050 01/2024, 08/26/2023, Additional history exists Albumin/Creatinine Ratio 03/16/2026 03/16/2023, 08/28 DXA Scan 05/01/2026 05/01/2024, 02/2022, 12/01/2021, Additional history exists Pneumococcal Vaccine: 65+ Years Completed 09/01/2015, 11/15/2014 VITAMIN D LEVEL ONCE IN A LIFETIME-USE SMARTSET# 06861 Completed 08/26/2023, 09/14/2022, 06/07/2022, Additional history exists HPV (Gardasil) Vaccine Aged Out No lo nger eligible based on patient's age to complete this topic MENINGOCOCCAL (MENACTRA/MENVEO) Aged Out No longer eligible based on patient's age to complete this topic documented as of this encounter Medical Devices Not on filedocumented as of this encounter Care Teams Safety Engineer Pressure Vessels Relationship Specialty Start Date End Date Rosario Gallagher DO [address] [place] [address] PCP - General Family Medicine 03/05/22 documented as of this encounter
--- OUTSIDE RECORDS SUMMARY | 2024-09-07 17:49 | External Medical Summary | Summary of Care ---
Author Name Unknown Organization [facility] Address [address] [facility] [place] [address] Phone [phone] Care Team Providers Care Manager Filter Name Role Phone AileenRosario randall Kay VELAZQUEZ Primary Care Provider [phone] Reason for Visit * Reason Onset Date Comments Appointment 09/04/2024 Encounter Details Date Type Department Care Team (Late st Contact Info) Description 09/04/2024 Telephone Access Center, [place] [address] [facility] *DO NOT REMOVE THIS DEPARTMENT* [place] [address] Services, Scheduling [address] [place] [address] Appointment Allergies Active Allergy Reactions Criticality Noted Date Comments Eye Lubricant 04/24/2024 Lisinopril 04/04/2018 cough Amlodipine 04/04/2018 edema Rosuvastatin 03/11/2022 Other reaction(s): muscle symptoms Adhesive Tape 02/12/2015 redness documented as of this encounter (statuses as of 09/04/2024) Medications Medication Sig Dispensed Refills Start Date [...] as of this encounter (statuses as of 09/04/2024) Active Problems Problem Noted Date Diagnosed Date [...] as of this encounter (statuses as of 09/04/2024) Resolved Problems Problem Noted Date Diagnosed Date Resolved Date Comedone 02/12/2015 03/11/2022 documented as of this encounter (statuses as of 09/04/2024) Immunizations Name Administration Dates Next Due COVID-19 mRNA, LNP-s, No Pre serve, 2-Dose Series ([employer]) 09/30/2021,02/14/2021,02/14/2021,01/24 Pneumococcal Polysaccharide PPV23 (Pneumovax) 11/15/2014 Seasonal [...] on file documented as of this encounter Miscellaneous Notes * Telephone Encounter - Flory Pyle OSA - 09/04/2024 12:43 PM EDT Rescheduled pt is aware * Telephone Encounter - Key Chiu RN - 09/04/2024 12:27 PM EDT If patient needs to reschedule to a different date because of timing, due 09/18/24 or later date. * Telephone Encounter - Mary Ellen Shah OSA - 09/04/2024 11:55 AM EDT Patient would like to reschedule the treatment appointment on 09/25/24. Patient states that 11 AM is too late for the appointment and she would like an appointment to be around 8:30 AM. Patient can be contacted at [phone]. documented in this encounter Plan of Treatment Upcoming Encounters Date Type Department Care Team (Late st Contact Info) Description 09/24/2024 8:30 AM EDT Hem/Onc Treatment Hematology/Oncology Treatment, [place] [address] [place] [address] Nicci, Chair [address] [facility] [address] 11/30/2024 10:00 AM EST Office Visit Family Practice [facility] [address] [place] [address] Rosario Gallagher DO [address] [place] [address] 12/12/2024 10:30 AM EST Office Visit Rheumatology [facility] [address] [place], [place] [address] Rajan Mitchell CRNP [address] [place] [address] Health Maintenance Due Date Last Done Comments [...] (#1) 2024 08/29/2023, 08/23/2022 GFR 07/13/2025 07/13/2024, 050 01/2024, 01/02/2024, Additional history exists TSH 07/13/2025 07/13/2024, 050 01/2024, 08/26/2023, Additional history exists Albumin/Creatinine Ratio 03/16/2026 03/16/2023, 08/28 DXA Scan 05/01/2026 05/01/2024, 02/2022, 12/01/2021, Additional history exists Pneumococcal Vaccine: 65+ Years Completed 09/01/2015, 11/15/2014 VITAMIN D LEVEL ONCE IN A LIFETIME-USE SMARTSET# [id number] Completed 08/26/2023, 09/14/2022, 06/07/2022, Additional history exists HPV (Gardasil) Vaccine Aged Out No lo nger eligible based on patient's age to complete this topic MENINGOCOCCAL (MENACTRA/MENVEO) Aged Out No longer eligible based on patient's age to complete this topic documented as of this encounter Medical Devices Not on filedocumented as of this encounter Care Teams Manager Filter Relationship Specialty Start Date End Date Rosario Gallagher DO [address] [place] [address] PCP - General Family Medicine 03/05/22 documented as of this encounter
--- OUTSIDE RECORDS SUMMARY | 2024-09-07 17:49 | External Medical Summary ---
Author Name Unknown Address Unknown Organization [id number][facility] [id number] [place] [id number] Laboratory Report Ordering Provider Test Date Status LONI SYLVESTER 09/03/2024 14:12:24 Final For PreSurgery, Procedure, O B Admit, or Surveillance testing - Nasal Turbinate source preferred.

For Symptomatic testing - Nasopharyngeal source preferred.
null Observation Date Value Abnormality Reference (Units ) Status SARS Coronavirus 2 09/03/2024 14:12:24 Negative N egative Final 2018 Novel Coronavirus not d etected.

This express test was developed and its performance characteristics determined by [facility]. It has not been cleared or approved by the U.S. Food and Drug Administration (FDA). FDA does not require this test to go thru premarket FDA review. This test is used for clinical purposes. It should not be regarded as investigational or for research. This laboratory is certified under the Clinical Laboratory Improvement Amendments (CLIA) as qualified to perform high complexity clinical laboratory testing.

This test is a nucleic acid amplification test (NAAT), a reverse transcriptase polymerase chain reaction (RT-PCR) test, or a Centers for Disease Control-acceptable equivalent. The test is performed in a high complexity Clinical Laboratory Improvement Amendments-(CLIA) certified laboratory. The test is acceptable for SARS-CoV-2 diagnosis, surveillance, and travel within the [place] and to most countries. Please check with local testing authorities about requirements before travel.

The validation of bronchial specimens, tracheal aspirates, and sputum for this assay was developed and performance characteristics determined by [facility]. The validation of alternate specimen types has not been cleared or approved by the U.S. Food and Drug Administration (FDA). It has been determined that such clearance is not necessary. Performing Location [facility] [address] [place] [address]
--- OUTSIDE RECORDS SUMMARY | 2024-09-07 17:49 | External Medical Summary | Summary of Care ---
Author Name Unknown Organization [facility] Address [address] [facility] [place] [address] Phone [phone] Care Team Providers Care [employer] Mixer Name Role Phone Rosario Gallagher DO Primary Care Provider [phone] Reason for Visit * Reason Onset Date Comments Emergency Department Follow-Up P t being seen for ER f/u apt for bronchitis, still has cough and using inhaler and still has SOB and cough in non-productive. Medication Administration 09/03/2024 Flu an d/or Pneumo Inj Encounter Details Date Type Department Care Team (Late st Contact Info) Description 09/03/2024 1:40 PM EDT Office Visit Family Practice [facility] [address] [facility] [place] [id number] Radha Marcelo CRNP [address] [facility] [place] [id number] SOB (shortness of breath)*; Bronchitis, complicated; Seronegative rheumatoid arthritis (HCC) Allergies Active Allergy Reactions Criticality Noted Date Comments Eye Lubricant 04/24/2024 Lisinopril 04/04/2018 cough Amlodipine 04/04/2018 edema Rosuvastatin 03/11/2022 Other reaction(s): muscle symptoms Adhesive Tape 02/12/2015 redness documented as of this encounter (statuses as of 09/03/2024) Medications Medication Sig Dispensed Refills Start Date [...] as of this encounter (statuses as of 09/03/2024) Active Problems Problem Noted Date Diagnosed Date [...] as of this encounter (statuses as of 09/03/2024) Resolved Problems Problem Noted Date Diagnosed Date Resolved Date Comedone 02/12/2015 03/11/2022 documented as of this encounter (statuses as of 09/03/2024) Immunizations Name Administration Dates Next Due COVID-19 mRNA, LNP-s, No Pre serve, 2-Dose Series (Pfizer) 09/30/2021,02/14/2021,02/14/2021,01/24 Pneumococcal Polysaccharide PPV23 (Pneumovax) 11/15/2014 Seasonal Influenza, PF, 6 M & above, IM , (FluLaval or Fluzone) 08/23/2022 Seasonal Influenza, Quadrivalent, ID 08/29/2023 TDAP (age 10 and older)(Boostrix) 06/25/2011 documented as of this encounter Social History Tobacco Use Types Packs/Day Years Used Date Smoking Tobacco: Former Cigarettes 0.5 5 Smokeless Tobacco: Never Tobacco Cessation:Counseling Given: Not Answered Comments:Quit 50 years ago or more Alcohol Use Standard Drinks/Week Comments Not [...] on file documented as of this encounter Last Filed Vital Signs Vital Sign Reading Time Taken Comments Blood Pressure 124/64 09/03/2024 1:40 PM EDT Pulse 86 09/03/2024 1:40 PM EDT Temperature 37.3 C (99.2 F) 09/03/2024 1:40 PM ED T Respiratory Rate 18 09/03/2024 1:40 PM EDT Oxygen Saturation 94% 09/03/2024 1:40 PM EDT Inhaled Oxygen Concentration - - Weight 82.1 kg (181 lb) 09/03/2024 1:40 PM EDT Height - - Body Mass Index 33.65 02/29/2024 9:54 AM EDT documented in this encounter Patient Instructions * Patient Instructions* Janette Spence LPN - 09/03/2024 1:35 PM EDT ~~PATIENT INSTRUCTIONS FOR FLU SHOT~~ Possible side effects of influenza vaccine, (flu shot), are usually mild and include: 1. Soreness or redness at injection site 2. Low grade fever 3. Body aches You may use Tylenol/Acetaminophen as needed for these symptoms. LET YOUR DOCTOR KNOW IMMEDIATELY IF YOU HAVE DIFFICULTY BREATHING OR SWALLOWING, EXPERIENCE ITCHINGOF FEET OR HANDS, HAVE SWELLING OF EYES, FACE OR INSIDE OF NOSE. documented in this encounter Progress Notes * Janette Spence LPN - 09/03/2024 1:35 PM EDT PRE - ADMINISTRATION DOCUMENTATION Are you experiencing any cold symptoms or fever? No Have you had Guillain-Denver Syndrome (an illness that causes paralysis) within the last 6 weeks? No Have you had the flu shot in the past? YES Have you ever had a reaction to the flu shot? No Janette Spence LPN, 09/03/2024 1:35 PM Immunization Administration Documentation Time Out Procedure Performed: Yes Patient Identified (Ask Name/Date of ): Yes Does the patient have a fever greater than 101 degrees today? No Patient allergic to latex? No VFC Stock: No Immunization(s) verified: Yes, Immunization Name: Flu, VIS Sheet(s) given: Yes Verified Side and Site: Yes Verified Shot(s) with Parent(s)/Patient: Yes * Radha Marcelo CRNP - 09/03/2024 1:32 PM EDT Images from the original note were not included. Follow up Family Medicine Visit History of Present Illness Zohra Waters is a very pleasant 78 year old female with PMH listed below presenting with ER follow up. [facility] on 08/22/24 Given prednisone, inhaler and benzonatate for bronchitis Started 3 weeks ago Not worsening but not feeling better Low grade fever today "Not been able to catch my breath" Unable to bring up cough Using albuterol 1-2 times daily Tried mucinex once but didn't do anything [place] better while on prednisone Social History Socioeconomic History Marital status: Spouse name: Not on file Number of children: Not on file Years of education: Not on file Highest education level: Not on file Occupational History Not on file Tobacco Use Smoking status: Former Current packs/day: 0.50 Average packs/day: 0.5 packs/day for 5.0 years (2.5 ttl pk-yrs) Types: Cigarettes Smokeless tobacco: Never Tobacco comments: Quit 50 years ago or more Vaping Use Vaping status: Never Used Substance and Sexual Activity Alcohol use: Not Currently Drug use: No Sexual activity: Not Currently Partners: Male Other Topics Concern Not on file Social History Narrative Not on file Social Determinants of Health Financial Resource Strain: Not on file Food Insecurity: Not on file Transportation Needs: Not on file Social Connections: Unknown (05/15/2024) Social Connections How often do you feel lonely or isolated from those around you? 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 Vitamin D deficiency Past Surgical History: Procedure Laterality Date BREAST BIOPSY Right 1990s benign MISCELLANEOUS ORDER ([facility] ONLY) 1997 FUse c5, c6, c7 MISCELLANEOUS ORDER ([facility] ONLY) 2012 removal of skin CA MISCELLANEOUS ORDER ([facility] ONLY) 2002 removal of skin CA REMOVE TONSILS & ADENOIDS, AGE 12+ 1958 Current Outpatient Medications Medication Sig Dispense Refill Metoprolol Succinate ER 25 MG Oral Tablet Extended Release 24 Hour (toPROL XL) TAKE 1 TABLET BY MOUTH EVERY MORNING 90 Tablet 1 Methotrexate Sodium 2.5 MG Oral Tablet Take 8 Tablets by mouth once a week. 80 Tablet 1 Sertraline HCl 25 MG Oral Tablet (Zoloft) TAKE 1 TABLET BY MOUTH EVERY MORNING 90 Tablet 3 Artificial Tears 83-15 % Ophthalmic Ointment every night at bedtime. Tacrolimus 0.1 % External Ointment Start: 10/26/23 11:00:00 EST, 1 appl, topical, bid, Disp# 30 g, To rash on nipple BID PRN Levothyroxine Sodium 88 MCG Oral Tablet (Synthroid) Take 1 Tablet by mouth in the morning. (at least 30 min prior to breakfast or other meds). 30 Tablet 11 Omeprazole 20 MG Oral Capsule Delayed Release (PriLOSEC) TAKE 1 CAPSULE BY MOUTH EVERY MORNING 90 Capsule 3 Magnesium 200 MG Oral Tablet Chewable Take by mouth. Multivitamin Adult Oral Tablet Chewable Take by mouth. Folic Acid 1 MG Oral Tablet Take 1 Tablet by mouth in the morning. 90 Tablet 4 Hydroxychloroquine Sulfate 200 MG Oral Tablet (Plaquenil) Take 2 Tablets by mouth in the morning. 180 Tablet 3 PreserVision AREDS 2+Multi Vit Oral Capsule Take by mouth. B-12 1000 MCG Oral Capsule Take 1 Capsule by mouth in the morning. Acetaminophen ER 650 MG Oral Tablet Extended Release Take by mouth. 2 daily Vitamin D, Cholecalciferol, 1000 units TABS Take by mouth. 2 tabs daily ASPIRIN 81 MG PO TABS 1 tab daily METRONIDAZOLE 0.75 % EX CREA Apply twice daily 45 g 5 No current facility-administered medications for this visit. Review of patient's allergies indicates: Allergen Reactions Eye Lubricant Lisinopril cough Norvasc [Amlodipine] edema Rosuvastatin Other reaction(s): muscle symptoms Tape [Adhesive Tape] redness Most Recent Immunizations Administered Date(s) Administered COVID-19 mRNA, LNP-s, No Preserve, 2-Dose Series ([employer]) 09/30/2021 Pneumococcal Polysaccharide PPV23 (Pneumovax) 11/15/2014 Seasonal Influenza, PF, 6 M & above, IM , (FluLaval or Fluzone) 08/23/2022 Seasonal Influenza, Quadrivalent, ID 08/29/2023 TDAP (age 10 and older)(Boostrix) 06/25/2011 Review of Systems: Physical Exam There were no vitals taken for this visit. Physical Exam Constitutional: Appearance: Normal appearance. HENT: Head: Normocephalic. Right Ear: Tympanic membrane, ear canal and external ear normal. Left Ear: Tympanic membrane, ear canal and external ear normal. Nose: Nose normal. Right Sinus: No maxillary sinus tenderness or frontal sinus tenderness. Left Sinus: No maxillary sinus tenderness or frontal sinus tenderness. Mouth/Throat: Pharynx: No posterior oropharyngeal erythema. Cardiovascular: Rate and Rhythm: Normal rate and regular rhythm. Pulmonary: Effort: Pulmonary effort is normal. Breath sounds: Examination of the right-lower field reveals rales. Rales present. No wheezing. Musculoskeletal: Cervical back: Neck supple. Skin: General: Skin is warm. Neurological: Mental Status: She is alert and oriented to person, place, and time. Psychiatric: Mood and Affect: Mood normal. Assessment and Plan 1. SOB (shortness of breath) Continue having SOB Will repeat chest x-ray today - XR CHEST 2 VIEWS - SARS-COV-2 (COVID-19), NAAT 2. Bronchitis, complicated - Doxycycline Hyclate 100 MG Oral Capsule; Take 1 Capsule by mouth in the morning and 1 Capsule before bedtime. Do all this for 10 days. Until gone.. Dispense: 20 Capsule; Refill: 0 3. Seronegative rheumatoid arthritis (HCC) On Methotrexate, plaquenil, infliximab Stop methotrexate while on antibiotics Wrap-Up I have advised the patient to call our office with any worsening or new symptoms. I spent a total of 30-39 minutes (exact time 30 mins) on the date of service in preparation, delivery, and documentation of the care provided to Zohra Waters excluding any time spent in the performance of separately billed services. Radha Marcelo, MSN, [facility] documented in this encounter Plan of Treatment Upcoming Encounters Date Type Department Care Team (Late st Contact Info) Description 09/25/2024 8:30 AM EDT Hem/Onc Treatment H[facility] Treatment, [place] [address] [facility] [id number] Nicci, Chair 4 Hem Onc [facility] [address] [facility] [place] [id number] 11/30/2024 10:00 AM EST Office Visit Family Practice [facility] [address] [facility] [place] [address] Rosario Gallagher, [address] [place] [id number] 12/12/2024 10:30 AM EST Office Visit Rheumatology [address] [place] [address] Rajan Mitchell CRNP [facility] [employer] [facility] [place] [address] Health Maintenance Due Date Last Done Comments [...] 01/02/2024, Additional history exists TSH 07/13/2025 07/13/2024, 05/0 01/2024, 08/26/2023, Additional history exists Albumin/Creatinine Ratio 03/16/2026 03/16/2023, 08/28 DXA Scan 05/01/2026 05/01/2024, 0 02/2022, 12/01/2021, Additional history exists Pneumococcal Vaccine: 65+ Years Completed 09/01/2015, 11/15/2014 VITAMIN D LEVEL ONCE IN A LIFETIME-USE SMARTSET# [id number] Completed 08/26/2023, 09/14/2022, 06/07/2022, Additional history exists HPV (Gardasil) Vaccine Aged Out No lo nger eligible based on patient's age to complete this topic MENINGOCOCCAL (MENACTRA/MENVEO) Aged Out No longer eligible based on patient's age to complete this topic documented as of this encounter Medical Devices Not on filedocumented as of this encounter Procedures Procedure Name Priority Date/Time Associated Diagnosis Comments XR CHEST 2 VIEWS STAT 09/03/2024 2:36 PM EDT SOB (shortness of breath) SARS-COV-2 (COVID-19), NAAT Routine 09/03/2024 2:12 PM EDT SOB (shortness of breath) documented in this encounter Results * XR CHEST 2 VIEWS (09/03/2024 2:36 PM EDT) Anatomical Region Laterality Modality Chest Computed Radiogr aphy 09/03/2024 2:49 PM EDT Impressions 09/03/2024 2:46 PM EDT IMPRESSION No acute pulmonary abnormality seen radiographically. Narrative 09/03/2024 2:46 PM EDT EXAM XR CHEST 2 VIEWS-09/03/2024 2:36 pm HISTORY ongoing SOB, + crackles COMPARISON None TECHNIQUE Chest x-ray two views FINDINGS The cardiomediastinal silhouette is normal in size. There are no pulmonary consolidations, pleural effusions or pneumothorax. There is no acute bone abnormality. Mild degenerative changes of the thoracic spine are noted. Procedure Note Ching Dejesus MD - 09/03/2024 EXAM XR CHEST 2 VIEWS-09/03/2024 2:36 pm HISTORY ongoing SOB, + crackles COMPARISON None TECHNIQUE Chest x-ray two views FINDINGS The cardiomediastinal silhouette is normal in size. There are nopulmonary consolidations, pleural effusions or pneumothorax. There is noacute bone abnormality. Mild degenerative changes of the thoracic spineare noted. IMPRESSION IMPRESSION No acute pulmonary abnormality seen radiographically. Radha DIAL RADIOLOGY (RAD GENER AL) * SARS-COV-2 (COVID-19), NAAT (09/03/2024 2:12 PM EDT) SARS-CoV-2 (COVID-19) Result Negative Negative 09/03/2024 4:26 PM EDT LABORATORY [facility] [place] [phone] Comment: 2019 Novel Coronavirus not detected. This express test was developed and its performance characteristics determined by [facility]. It has not been cleared or approved [...] (RT-PCR) test, or a Centers for Disease Control- acceptable equivalent. The test is performed in a high complexity Clinical Laboratory Improvement Amendments-(CLIA) certified laboratory. The test is acceptable for SARS-CoV-2 diagnosis, surveillance, and travel within the [place] and to most countries. Please check with local testing authorities about requirements before travel. The validation of bronchial specimens, tracheal aspirates, and sputum for this assay was developed and performance characteristics determined by [facility]. The validation of alternate specimen types has not been cleared or approved by the U.S. Food and Drug Administration (FDA). It has been determined that such clearance is not necessary. Upper Respiratory Mid-turbinate nasal swab / Unknown Non-blood Collection / Unknown 09/03/2024 2:12 PM EDT 09/03/2024 2:12 PM EDT Radha DIAL LAB MICRO - GENERAL ORDERABLES LABORATORY [place] [phone] [place] [id number] documented in this encounter Visit Diagnoses Diagnosis SOB (shortness of breath)- Primary Shortness of breath Bronchitis, complicated Bronchitis, not specified as acute or chronic Seronegative rheumatoid arthritis (HCC) Rheumatoid arthritis documented in this encounter Care Teams [employer] Mixer Relationship Specialty Start Date End Date Rosario Gallagher DO [address] [place] [id number] PCP - General Family Medicine 03/05/22 documented as of this encounter
[2024-09-07] MEDS: ALBUTEROL 0.5% NEB SOLN 2.5 MG/0.5 ML VIAL NEB PRN (20:52)
[2024-09-07] MEDS: guaiFENesin 600 MG TABCR PO SCH (21:12)
[2024-09-07] MEDS: ACETAMINOPHEN 325 MG TAB PO PRN (21:12)
[2024-09-07] MEDS: ADVANCED PROBIOTIC 625 MG CAPSULE PO SCH (21:13)
[2024-09-07] MEDS: HYDROXYCHLOROQUINE SULFATE 200 MG TAB PO SCH (21:13)
[2024-09-07] MEDS: BENZONATATE 100 MG CAPSULE PO SCH (21:13)
[2024-09-07] MEDS: HEPARIN SOD 5,000 UNIT/0.5 ML VIAL SQ SCH (21:14)
[2024-09-08] MEDS: LEVOTHYROXINE SODIUM 88 MCG TABLET PO SCH (06:12)
[2024-09-08 06:59] LABS: Hemoglobin 13.1 g/dl (12.0-16.0); Mean Corpuscular Hgb Conc 33.6 g/dL (32.0-36.0); Mean Corpuscular Volume 95.1 fL (80.0-100.0); Mean Platelet Volume 10.1 fL (9.4-12.4); Platelet Count 261 K/uL (130-400); RDW Coefficient of Variation 13.6 % (11.5-14.5); RDW Standard Deviation 47.4 fL (36.4-46.3); White Blood Count 8.95 K/ul (4.8-10.8)
[2024-09-08 07:26] LABS: BUN Creatinine Ratio 17.7 (10-20); Calcium 9.6 mg/dl (8.6-10.3); Creatinine Clr Calc Pharmacy 73.9 ml/min; Magnesium 2.2 mg/dl (1.7-2.4); Phosphorus 3.7 mg/dl (2.5-4.9)
[2024-09-08] MEDS: SERTRALINE HCL 50 MG TABLET PO SCH (09:28)
[2024-09-08] MEDS: METOPROLOL SUCC 25MG EXT REL TAB PO SCH (09:29)
[2024-09-08] MEDS: CEROVITE ADV FORMULA TAB PO SCH (09:29)
[2024-09-08] MEDS: PANTOprazole 40 MG TAB PO SCH (09:29)
[2024-09-08] MEDS: FOLIC ACID 1 MG TAB PO SCH (09:30)
[2024-09-08] MEDS: FLUTICASONE PROPIONATE NA SPR 16 GM BTL SCH (09:30)
[2024-09-08] MEDS: CYANOCOBALAMIN (B-12) 500 MCG TABLET PO SCH (09:30)
[2024-09-08] MEDS: AZITHROMYCIN 250 MG TAB PO SCH (09:30)
[2024-09-08] MEDS: CHOLECALCIFEROL 25 MCG (1000 UNITS) TAB PO SCH (09:30)
[2024-09-08] MEDS: ASPIRIN 81 MG ECTAB PO SCH (09:31)
[2024-09-08] MEDS: metroNIDAZOLE 0.75% TOPICAL GEL 45 GM TUBE TOP SCH (09:37)
--- NOTE | 2024-09-08 11:28 | Hospitalist Progress Note ---
Date of Service September 08, 2024 Assessment & Plan (1) Right upper lobe pneumonia: (2) Acute hypoxic respiratory failure: (3) Hypothyroidism: Plan Patient with acute hypoxia in the setting of right upper lobe pneumonia Patient appears to be improving Increase activity Continue current antibiotic regimen Discontinue Mucomyst and saline nebulizers Titrate oxygen to off Okay to [facility] Admission and Anticipated Discharge Date Admission Date: September 07, 2024 Subjective Patient reports feeling somewhat better, still short of breath with exertion Physical Exam Physical Exam: Constitutional: Alert, nontoxic HEENT: Mucous membranes moist. Lungs: Decreased breath sounds, no wheezes, some coarse breath sounds right upper lobe CV: S1-S2, regular Abdomen: Soft, nontender, nondistended Extremities: No significant edema Neuro: No focal deficits Psych: Cooperative, normal mood Results & Data Results & Data Vital Signs (Past 12 Hours) Vital Signs Temp Pulse Resp BP Pulse Ox O2 Del Method O2 Flow Rate 09/08/24 07:36 36.4 C L 77 18 124/75 94 Nasal Cannula 2 09/08/24 07:30 80 20 97 Nasal Cannula 3 09/08/24 03:49 36.9 C 79 20 124/68 94 Nasal Cannula 2 09/08/24 00:07 36.6 C 82 20 107/65 94 Nasal Cannula 2 Diagnostic Findings Reviewed imaging, laboratory and diagnostic studies. Pertinent findings as below. WBCs 8.9 Electrolytes within normal limits Creatinine 0.62
[2024-09-08] MEDS: cefTRIAXone SODIUM 2,000 MG/50 ML BAG IV SCH (14:27)
[2024-09-09 07:37] VITALS: BP 162/88; PULSE 77; RESP 16; TEMP 97.9; O2SAT 97
--- NOTE | 2024-09-09 08:02 | Discharge Summary ---
Discharge Summary Date of Service September 09, 2024 Principal Dx & Hospital Course #1 = Principal Diagnosis (1) Right upper lobe pneumonia: (2) Acute hypoxic respiratory failure: (3) Hypothyroidism: Plan Patient presents emergency room with shortness of breath and failed response to outpatient treatment for bronchitis. Imaging revealed right upper lobe pneumonia and patient was hypoxic. Patient was cared for in the hospital. She was supported with oxygen. She was treated with IV antibiotics. Through the course of her hospitalization she rapidly improved. Her shortness of breath resolved and she was titrated off oxygen. Her laboratory studies stabilized. On the morning of discharge she was were on room air. Her cough had significantly improved. She can be transition to oral antibiotics. Should be discharged home follow-up with her PCP for ongoing care. Notes For Next Care Provider Consider repeat chest imaging in 4 to 6 weeks to ensure clearing of pneumonia Medication Changes From Visit Doxycycline discontinued Omnicef and Zithromax to treat pneumonia Mucinex and Tessalon for antitussive and mucolytic treatment. Admission HPI Per Admitting Provider 78-year-old lady with PMH of HTN, HLD, acquired hypothyroidism, Raynaud's disease without gangrene, GERD, seborrheic dermatitis, generalized osteoarthritis, seronegative rheumatoid arthritis, rosacea, squamous cell carcinoma skin presented to the ED 09/07 with complaint of worsening cough and shortness of breath. Patient reports having cough since about 4 weeks, she was evaluated in the ED around 2.5 weeks ago and was discharged on Tessalon Perles/ inhalers/prednisone, patient reports she felt better for about 3 days, then she started worsening with cough and shortness of breath. She visited her PCP last Tuesday and was prescribed doxycycline and Mucinex. She continued to have worsening cough and shortness of breath with activity, hence decided to present to the ED. She had taken about 4 days of doxycycline prior to arrival. Patient denies fever or sore throat, reports mostly dry cough. Patient denies nausea, vomiting, acute changes in her bowel or bladder habit, abdominal pain, chest pain, palpitation. Patient does report feeling weaker, getting occasional headache and dizziness. Patient reports quitting smoking about 50 years ago, denies alcohol and recreational drug use. Full code as per my discussion with the patient. Medications reviewed with the patient at the bedside. Plan of care discussed with the patient and her at bedside in detail, they voiced understanding. Admission Exam Per Admitting Provider See H&P Discharge Exam Constitutional: Alert, nontoxic, no distress HEENT: Mucous membranes moist. Lungs: Decreased breath sounds, no wheezes, improved airflow, few scattered crackles CV: S1-S2, regular Abdomen: Soft, nontender, nondistended Extremities: No significant edema Neuro: No focal deficits Psych: Cooperative, normal mood Updated Medication List Medication Instructions Recorded Confirmed Type aspirin 81 mg tablet,delayed 81 mg PO QAM 07/29/21 09/07/24 History release metoprolol succinate 25 mg 25 mg PO QAM 07/29/21 09/07/24 History tablet,extended release 24 hr omeprazole 20 mg tablet,delayed 20 mg PO QAM 07/29/21 09/07/24 History release sertraline 25 mg tablet 25 mg PO QAM 07/29/21 09/07/24 History vitamins A,C,C-dimc-bmgntb 4,296 1 cap PO BID 07/29/21 09/07/24 History mcg-226 mg-90 mg capsule (PreserVision AREDS) cholecalciferol (vitamin D3) 25 25 mcg PO DAILY 01/12/23 09/07/24 History mcg (1,000 unit) capsule cyanocobalamin (vitamin B-12) 1,000 mcg PO DAILY 01/12/23 09/07/24 History 1,000 mcg tablet (Vitamin B-12) hydroxychloroquine 200 mg tablet 400 mg PO HS 01/12/23 09/07/24 History metronidazole 0.75 % topical cream 1 applic topical DAILY 01/12/23 09/07/24 History albuterol sulfate 90 mcg/actuation 1 - 2 inh inhalation .Q6-8H PRN 09/07/24 09/07/24 History aerosol inhaler Other doxycycline hyclate 100 mg capsule 100 mg PO BID 09/07/24 09/07/24 History folic acid 1 mg tablet 1 mg PO QAM 09/07/24 09/07/24 History levothyroxine 75 mcg tablet 88 mcg PO QAM 09/07/24 09/07/24 History methotrexate sodium 2.5 mg tablet 2.5 mg PO UD 09/07/24 09/07/24 History prednisone 20 mg tablet 60 mg (3 x 20 mg) PO DAILY 4 days 09/07/24 Rx #12 tabs azithromycin 250 mg tablet 250 mg PO QAM #3 tabs 10/13/24 Rx benzonatate 100 mg capsule 100 mg PO TID PRN cough #30 caps 09/09/24 Rx cefdinir 300 mg capsule 300 mg PO BID 5 days #10 caps 09/09/24 Rx guaifenesin 600 mg tablet, 600 mg PO Q12 PRN cough/congestion 09/09/24 Rx extended release 12 hr #20 tabs Hospital Stay Data Consultations 09/07/24 13:53 ED Decision to Admit Stat Diagnostic Imagining Performed 09/07/24 09:16 CT angio chest PE protocol Stat Reviewed imaging, laboratory and diagnostic studies. Pertinent findings as below. WBCs 8.9 Hemoglobin 13.1 Electrolytes and renal function all within normal range Respiratory viral panel negative Pending Results Patient Have Any Pending Studies at Discharge: No Discharge Instructions Given to Patient (Per Discharging Provider) Complete course of antibiotics Discussed with your PCP follow-up chest imaging in 4 to 6 weeks Total Time Total Time Spent Total Time Spent (In Minutes): 22
== END 2024-09-09 10:18 | disposition home or self-care (01) | DRG 193 ==
LOC: ED 08:39 → SUATTDRO 14:23 → 2N 14:23

== ENCOUNTER 2025-05-20 17:13 | Inpatient (IN) ==
[2025-05-20 18:04] LABS: Basophils # (auto) 0.01 K/uL (0.00-0.20); Basophils % (auto) 0.1 %; Hematocrit (blood only) 37.9 % (37.0-47.0); Hemoglobin 12.9 g/dl (12.0-16.0); Immature Granulocytes # (auto) 0.08 K/uL (0.01-0.20); Immature Granulocytes % (auto) 0.6 %; Lymphocytes # (auto) 0.61 K/uL (1.20-3.40); Lymphocytes % (auto) 4.8 %; Mean Corpuscular Hemoglobin 32.1 pg (25.0-34.0); Mean Corpuscular Volume 94.3 fL (80.0-100.0); Mean Platelet Volume 9.6 fL (9.4-12.4); Monocytes # (auto) 2.12 K/uL (0.11-0.59); Monocytes % (auto) 16.8 %; Neutrophils # (auto) 9.83 K/uL (1.40-6.50); Neutrophils % (auto) 77.7 %; Platelet Count 222 K/uL (130-400); RDW Coefficient of Variation 13.2 % (11.5-14.5); RDW Standard Deviation 45.5 fL (36.4-46.3); Red Blood Count 4.02 M/uL (4.20-5.40); White Blood Count 12.65 K/ul (4.8-10.8)
[2025-05-20 18:21] LABS: Partial Thromboplastin Ratio 1.1; Partial Thromboplastin Time 30 Seconds (21-31); Prothrombin Time 10.7 Seconds (9.0-12.0)
[2025-05-20 18:25] LABS: Anion Gap 7 (3-11); Bilirubin,Total 0.6 mg/dl (0.2-1.0); Carbon Dioxide 24 mmol/L (21-32); Chloride 99 mmol/L (98-107); Magnesium 2.1 mg/dl (1.7-2.4); Potassium 4.4 mmol/L (3.5-5.1); Sodium 130 mmol/L (136-145)
--- NOTE | 2025-05-20 18:30 | XRay Report ---
EXAM: Portable AP chest radiograph TECHNIQUE: AP portable radiograph of the chest was obtained. INDICATION: Chest pain Comparison: Chest radiograph and CT thorax September 07, 2024 FINDINGS: LINES and TUBES: None CARDIOVASCULAR: Cardiac silhouette is stably and mildly enlarged in size. Atherosclerosis of the thoracic aorta. LUNGS/PLEURA: Mild pulmonary vascular congestion and chronic interstitial lung changes are similar to the previous radiograph. There is a new confluent opacity in the right upper lobe of the lung measuring 4.0 cm in size. No significant pleural fluid. No discernible pneumothorax. OSSEOUS/OTHER: No displaced acute osseous process identified. IMPRESSION: New confluent opacity measuring 4.0 cm in size over the right upper lobe of the lung. Given the previous radiographic and CT findings, this may represent a pneumonia in the right upper lobe. Recommend follow-up radiograph in 4-6 weeks after appropriate treatment to ensure resolution of this finding and to exclude other processes including neoplasm. Electronically signed by Adrien Tucker 05-20-2025 6:30 PM
[2025-05-20 18:31] LABS: Alanine Aminotransferase 14 U/L (7-52); Albumin Globulin Ratio 1.4 (0.9-2); Alkaline Phosphatase 42 U/L (34-104); Aspartate Aminotransferase 18 U/L (13-39); BUN Creatinine Ratio 17.7 (10-20); Blood Urea Nitrogen 14 mg/dl (6-23); Globulin 2.8 gm/dl (2.5-4.0); Glucose 91 mg/dl (70-99(Fasting)); Total Protein 6.7 gm/dl (6.0-8.3)
[2025-05-20 18:35] LABS: Troponin I High Sensitivity 7.7 pg/ml (0-14)
[2025-05-20] MEDS: SODIUM CHLORIDE 0.9% 1,000 ML IV ONE (18:41)
--- NOTE | 2025-05-20 18:41 | Emergency Department Note ---
Impression & Plan SOB (shortness of breath), Pneumonia, Leukocytosis, Failure of outpatient treatment ED Provider Note NAME: VJ LATHAM AGE: 79 SEX: F : 1945 ARRIVES VIA: Walk-In INFORMANT: [Patient] ED PROVIDER(S): [Vincent Lundy MD] CHIEF COMPLAINT: Illness HISTORY OF PRESENT ILLNESS: The patient is a 79-year-old female who presents to the ER with weakness and some shortness of breath. She has had 4 days of a headache, cough, shortness of breath and chills. Yesterday, she was in the ED and found to have pneumonia on CT and chest x-ray imaging. She was placed on Augmentin. Despite these meds, she feels worse. She presents with a fever of 39 degrees. She took Tylenol around 6 hours ago. The patient has not had vomiting, there has been no diarrhea. No known sick contacts. PMHx/PSHx/Social Hx: See Below PHYSICAL EXAM: GENERAL: Patient is in no acute distress. HEENT: No acute trauma, normocephalic atraumatic, mucous membranes moist, no nasal congestion. NECK: No stridor, no adenopathy, no meningismus, trachea is midline. LUNGS: Clear to auscultation bilaterally when listening anterior, no wheeze, no rhonchi, breath sounds equal. HEART: Without murmurs gallops or rubs, regular rate and rhythm. ABDOMEN: Soft, nontender, no peritonitis. EXTREMITIES: No cyanosis, full range of motion of all the joints without pain or difficulty. NEUROLOGIC: Oriented x 3, no acute motor or sensory deficits, no focal weakness. SKIN: No jaundice, no diaphoresis. DIFFERENTIAL DIAGNOSIS: Pneumonia, failed outpatient management, viral illness, dehydration, electrolyte imbalance, bacteremia or sepsis, among others. EMERGENCY DEPARTMENT PROCEDURES: MEDICAL DECISION MAKING: There is a mild leukocytosis, this of course could be consistent with infection. There is a normal hemoglobin and platelet count. There is no coagulopathy. Sodium is somewhat low at 130. No renal failure. No concerning liver enzyme elevation. Lactic acid level is not elevated making sepsis less likely. ECG shows a sinus rhythm, no ischemia or dysrhythmia. Cardiac enzyme testing x 1 is not consistent with acute cardiac injury. Chest x-ray shows a right upper lung pneumonia. On exam, the patient was febrile. She was not toxic or hypoxic. Patient received IV saline for hydration. She was given IV cefepime as antibiotic coverage. She was given a DuoNeb. She was given oral Tylenol. Patient presents with pneumonia. The pneumonia is larger compared to yesterday. She is now febrile, she is not improving with the Augmentin. Hospitalization is indicated. I spoke with the patient and case management. The on-call hospitalist was consulted. Prior/Outside records/notes reviewed: Yesterday's ED visit note describing her presentation, findings and outpatient plan. ECG per my interpretation: Indication was shortness of breath. The ECG shows a normal sinus rhythm with a rate of 91. There is no ST elevation, no PVCs. The QTc is 408. Continuous Cardiac Monitoring per my interpretation: An order was placed for continuous cardiac monitoring. The monitor shows a rate of 87 with normal sinus rhythm. Imaging/x-ray results per my interpretation: Chest x-ray shows a right upper lung pneumonia worse compared to yesterday's x-ray. Chronic Medical/Social conditions affecting care: Advanced age. Care/Management discussed with: Case management, the on-call hospitalist. Level of care consideration(s): After review of the information above and other included data: --I believe the patient requires escalation of care to admission DISPOSITION: Admission Past Med/Surg History Problem List (Updated 05/21/25 @ 00:31 by Vincent Lundy MD) Failure of outpatient treatment (Acute) Leukocytosis (Acute) Pneumonia (Acute) SOB (shortness of breath) (Acute) Immunosuppression due to drug therapy Neutrophilic leukocytosis Ground glass opacity present on imaging of lung Hyponatremia Shortness of breath Weakness Cough (Acute) Headache (Acute) Acute hypoxic respiratory failure Hypoxia (Acute) Right upper lobe pneumonia (Acute) Bronchospasm (Acute) Pneumonia (Acute) Nonspecific paroxysmal spell Hypothyroidism 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 History of skin cancer Medical History Arthritis History of esophageal stricture GERD (gastroesophageal reflux disease) Eli's disease History of Mohs micrographic surgery for skin cancer ON NOSE Macular degeneration "BEGINING STAGES" Anxiety Migraine Hyperlipidemia "BORDERLINE" Hypertension Surgical History History of cataract surgery RT Fusion of spine CERVICAL (GOOD ROM) Family history of reaction to anesthesia MOTHER-SLOW TO WAKE UP H/O tubal ligation History of colonoscopy History of esophagogastroduodenoscopy (EGD) History of tooth extraction History of tonsillectomy and adenoidectomy Family History Other No significant family history Social History Smoking Status: Former smoker Second Hand Exposure: Yes (IN THE PAST ( USED TO SMOKE)); Do You Dip or Chew Tobacco: No; Hx Alcohol Use: No Hx Substance Use: No Preferred Language: Lithuanian Communication Ability: Effective Annual Campaign Manager Required: No Beliefs That Will Affect Care: None Current Living Situation: Spouse Feels Safe at Home: Yes Assistive Devices: Glasses Allergies Allergies Allergy/AdvReac Type Severity Reaction Status Date / Time [id number]-[id number] Reductase Allergy Intermediate Muscle Pain Verified 01/12/23 12:54 Inhibitor [Akwgpcq-Mjb-Num Reductase Inhibitor] adhesive tape Allergy Mild SKIN Verified 01/12/23 12:54 REDNESS amlodipine [From Norvasc] Allergy Mild Cough Verified 01/12/23 12:54 lisinopril Allergy Mild Cough Verified 01/12/23 12:54 Home Meds Home Medications Medication Instructions Recorded Confirmed aspirin 81 mg tablet,delayed 81 mg PO QAM 07/29/21 05/20/25 release metoprolol succinate 25 mg 25 mg PO [facility] 07/29/21 05/20/25 tablet,extended release 24 hr omeprazole 20 mg tablet,delayed 20 mg PO QAM 07/29/21 05/20/25 release sertraline 25 mg tablet 25 mg PO QAM 07/29/21 05/20/25 vitamins A,C,Z-qdrd-txomsn 4,296 1 cap PO BID 07/29/21 05/20/25 mcg-226 mg-90 mg capsule (PreserVision AREDS) cholecalciferol (vitamin D3) 25 25 mcg PO DAILY 01/12/23 05/20/25 mcg (1,000 unit) capsule cyanocobalamin (vitamin B-12) 1,000 mcg PO DAILY 01/12/23 05/20/25 1,000 mcg tablet (Vitamin B-12) hydroxychloroquine 200 mg tablet 400 mg PO HS 01/12/23 05/20/25 metronidazole 0.75 % topical cream 1 applic topical DAILY 01/12/23 05/20/25 albuterol sulfate 90 mcg/actuation 1 - 2 inh inhalation .Q6-8H PRN sob 09/07/24 05/20/25 aerosol inhaler folic acid 1 mg tablet 1 mg PO QAM 09/07/24 05/20/25 methotrexate sodium 2.5 mg tablet 2.5 mg PO UD 09/07/24 05/20/25 ciclopirox 8 % topical solution 1 applic topical HS 05/19/25 05/20/25 fluocinonide 0.05 % topical 1 applic topical .ONCE TO TWICE 05/20/25 05/20/25 solution DAILY levothyroxine 88 mcg tablet 88 mcg PO QAM 05/20/25 05/20/25 (Synthroid) Previous Rx's Medication Instructions Recorded guaifenesin 600 mg tablet, 600 mg PO Q12 PRN cough/congestion 09/09/24 extended release 12 hr #20 tabs amoxicillin 875 mg-potassium 1 tab PO BID 10 days #20 tabs 05/19/25 clavulanate 125 mg tablet benzonatate 100 mg capsule 100 mg PO TID PRN cough #15 caps 05/19/25 Results & Data (ED) Vital Signs Vital Signs - 24 hr 05/20/25 17:15 05/20/25 17:18 05/20/25 17:55 Temperature 39.1 C H Temperature Source Oral Pulse Rate 92 H Pulse Rate [Apical] 86 Pulse Rate from SpO2 Sensor Pulse Rhythm Regular Pulse Strength Normal Respiratory Rate 20 18 Respiratory Effort / Characteristics Non-Labored Spontaneous Respiratory Depth Normal Blood Pressure 134/74 Blood Pressure [Right Arm] 129/62 Blood Pressure Mean 94 Blood Pressure Mean [Right Arm] 84 Blood Pressure Position Sitting Pulse Oximetry 93 93 94 Oxygen Delivery Method Room Air Room Air Room Air Sepsis Recent Fever Within 48 Hours No Sepsis New/Unexplained Change in Mental Status N/A Sepsis Action Taken by Nursing No Action Required 05/20/25 18:03 05/20/25 18:09 05/20/25 18:39 Temperature Temperature Source Pulse Rate 87 89 86 Pulse Rate [Apical] Pulse Rate from SpO2 Sensor 85 Pulse Rhythm Pulse Strength Respiratory Rate 20 22 Respiratory Effort / Characteristics Respiratory Depth Blood Pressure Blood Pressure [Right Arm] Blood Pressure Mean Blood Pressure Mean [Right Arm] Blood Pressure Position Pulse Oximetry 96 Oxygen Delivery Method Sepsis Recent Fever Within 48 Hours Sepsis New/Unexplained Change in Mental Status Sepsis Action Taken by Nursing 05/20/25 19:06 05/20/25 20:03 Temperature Temperature Source Pulse Rate 92 H 92 H Pulse Rate [Apical] Pulse Rate from SpO2 Sensor 92 H 92 H Pulse Rhythm Pulse Strength Respiratory Rate 23 Respiratory Effort / Characteristics Respiratory Depth Blood Pressure 111/55 L Blood Pressure [Right Arm] Blood Pressure Mean 73 Blood Pressure Mean [Right Arm] Blood Pressure Position Pulse Oximetry 95 95 Oxygen Delivery Method Sepsis Recent Fever Within 48 Hours Sepsis New/Unexplained Change in Mental Status Sepsis Action Taken by Alf Medications Current Medication List: was personally reviewed by me Laboratory Data Attestation: I reviewed the patient's lab results. 05/20/25 17:39 05/20/25 17:39 Lab Results 05/20/25 05/20/25 05/20/25 Range/Units 17:39 17:39 18:38 WBC 12.65 H (4.8-10.8) K/ul RBC 4.02 L (4.20-5.40) M/uL Hgb 12.9 (12.0-16.0) g/dl Hct 37.9 (37.0-47.0) % MCV 94.3 (80.0-100.0) fL MCH 32.1 (25.0-34.0) pg MCHC 34.0 (32.0-36.0) g/dL RDW Std Deviation 45.5 (36.4-46.3) fL RDW Coeff of Ronda 13.2 (11.5-14.5) % Plt Count 222 (130-400) K/uL MPV 9.6 (9.4-12.4) fL Immature Gran % (Auto) 0.6 % Neut % (Auto) 77.7 % Lymph % (Auto) 4.8 % [place] % (Auto) 16.8 % Eos % (Auto) 0.0 % Baso % (Auto) 0.1 % Neut # (Auto) 9.83 H (1.40-6.50) K/uL Lymph # (Auto) 0.61 L (1.20-3.40) K/uL [place] # (Auto) 2.12 H (0.11-0.59) K/uL Eos # (Auto) 0.00 (0.00-0.50) K/uL Baso # (Auto) 0.01 (0.00-0.20) K/uL Immature Gran # (Auto) 0.08 (0.01-0.20) K/uL PT 10.7 (9.0-12.0) Seconds INR 1.0 (0.9-1.1) APTT 30 (21-31) Seconds PTT Ratio 1.1 Sodium 130 L (136-145) mmol/L Potassium 4.4 (3.5-5.1) mmol/L Chloride 99 (98-107) mmol/L Carbon Dioxide 24 (21-32) mmol/L Anion Gap 7 (3-11) BUN 14 (6-23) mg/dl Creatinine 0.79 (0.6-1.2) mg/dl Est Cr Clr Drug Dosing Not Reportable eGFR 76.52 BUN/Creatinine Ratio 17.7 (10-20) Glucose 91 (70-99(Fasting)) mg/dl Lactate 1.6 (0.4-2.0) mmol/L Calcium 9.0 (8.6-10.3) mg/dl Magnesium 2.1 Cancelled (1.7-2.4) mg/dl Total Bilirubin 0.6 (0.2-1.0) mg/dl AST 18 (13-39) U/L ALT 14 (7-52) U/L Alkaline Phosphatase 42 (34-104) U/L Troponin I High Sens 7.7 (0-14) pg/ml Total Protein 6.7 (6.0-8.3) gm/dl Albumin 3.9 (3.4-5.0) gm/dl Globulin 2.8 (2.5-4.0) gm/dl Albumin/Globulin Ratio 1.4 (0.9-2) Administered Medications Hydroxychloroquine Sulfate (Hydroxychloroquine Sulfate 200 Mg Tab) 400 mg PO HS ESPERANZA Stop: 06/19/25 23:30 Last Admin: 05/20/25 23:54 Dose: 400 mg Documented By: MCKAYLA Sodium Chloride (Nss) 1,000 mls @ 125 mls/hr IV .Q8H ESPERANZA Stop: 05/23/25 19:59 Last Admin: 05/20/25 21:08 Dose: 125 mls/hr Documented By: CARLOS Multivitamins/Minerals (Cerovite Adv Formula Tab) 1 tab PO BID ESPERANZA Stop: 06/19/25 23:44 Last Admin: 05/20/25 23:52 Dose: Not Given Documented By: MCKAYLA Discontinued Medications Acetaminophen (Acetaminophen 500 Mg Tab) 1,000 mg PO NOW STA Stop: 05/20/25 18:25 Last Admin: 05/20/25 18:42 Dose: 1,000 mg Documented By: CARLOS Albuterol (Albut/Ipratrop 3mg/0.5mg Neb 3 Ml Vial) 3 ml NEB NOW STA; Protocol Stop: 05/20/25 19:06 Last Admin: 05/20/25 19:09 Dose: 3 ml Documented By: CARLOS Azithromycin (Azithromycin 250 Mg Tab) 500 mg PO NOW ONE Stop: 05/20/25 19:50 Last Admin: 05/20/25 20:15 Dose: 500 mg Documented By: CARLOS Sodium Chloride (Nss) 1,000 mls @ 999 mls/hr IV .Q1H1M ONE Stop: 05/20/25 18:52 Last Infusion: 05/20/25 20:05 Dose: Infused Documented By: Admin: 05/20/25 18:41 Dose: 999 mls/hr Documented By: CARLOS Cefepime HCl (Maxipime 2000mg) 2,000 mg in 20 mls @ 5 mls/min IV NOW STA; Protocol Stop: 05/20/25 17:55 Last Admin: 05/20/25 18:42 Dose: 5 mls/min Documented By: CARLOS Imaging Data Radiologist's Impression: Chest X-Ray 05/20/25 17:18 EXAM: Portable AP chest radiograph TECHNIQUE: AP portable radiograph of the chest was obtained. INDICATION: Chest pain Comparison: Chest radiograph and CT thorax September 07, 2024 FINDINGS: LINES and TUBES: None CARDIOVASCULAR: Cardiac silhouette is stably and mildly enlarged in size. Atherosclerosis of the thoracic aorta. LUNGS/PLEURA: Mild pulmonary vascular congestion and chronic interstitial lung changes are similar to the previous radiograph. There is a new confluent opacity in the right upper lobe of the lung measuring 4.0 cm in size. No significant pleural fluid. No discernible pneumothorax. OSSEOUS/OTHER: No displaced acute osseous process identified. IMPRESSION: New confluent opacity measuring 4.0 cm in size over the right upper lobe of the lung. Given the previous radiographic and CT findings, this may represent a pneumonia in the right upper lobe. Recommend follow-up radiograph in 4-6 weeks after appropriate treatment to ensure resolution of this finding and to exclude other processes including neoplasm. Electronically signed by Adrien Tucker 05-20-2025 6:30 PM Discharge Plan Visit Data Chief Complaint: Illness Stated Complaint: HEADACHE,LOSING BALANCE,SOB,PNEUMONIA ED Provider: Vincent Lundy Discharge Problem: SOB (shortness of breath), Pneumonia, Leukocytosis, Failure of outpatient treatment Patient Disposition: Admitted As Inpatient Condition: Fair Discharge Instructions Interventions: ED Discharge Assessment Last Done: 05/20/25 23:08 Discharge Problem: Pneumonia Qualifiers: Pneumonia type: due to unspecified organism Laterality: right Lung location: u pper lobe of lung Qualified Code(s): J18.9 - Pneumonia, unspecified organism Leukocytosis Qualifiers: Leukocytosis type: unspecified Qualified Code(s): D72.829 - Elevated white blood cell count, unspecified
[2025-05-20] MEDS: CEFEPIME 2000MG 2,000 MG/20 ML SYR IV STA (18:42)
[2025-05-20] MEDS: ACETAMINOPHEN 500 MG TAB PO STA (18:42)
[2025-05-20] MEDS: ALBUT/IPRATROP 3MG/0.5MG NEB 3 ML VIAL NEB STA (19:09)
--- NOTE | 2025-05-20 19:10 | History & Physical Report ---
Date of Service May 20, 2025 Assessment & Plan (1) Right upper lobe pneumonia: (2) Hyponatremia: (3) Weakness: (4) Ground glass opacity present on imaging of lung: (5) Neutrophilic leukocytosis: (6) Immunosuppression due to drug therapy: (7) Rheumatoid arthritis: Plan Zohra is a 79yo female with PMHx RA on plaquenil, methotrexate, and a biologic medication, migraines, GERD, HTN, anxiety, and former tobacco use presenting for worsening SOB, weakness, and fever, admitted for recurrent RUL pneumonia with accompanying weakness and hyponatremia, immunosuppressed. Seen here a day prior 05/19/25 for similar concerns, diagnosed with RUL pneumonia, discharged on Augmentin 875mg BID for 10 days. Negative for COVID/flu/RSV 05/19. Patient requires inpatient observation at this time for broad-spectrum IV antibiotics, IV fluid resuscitation, and pulmonary consultation due to recurrent nature of pt's RUL pneumonia in the context of immunosuppression. #Pneumonia, RUL #Immunosuppressed Recurrent with prior ground glass opacities seen on 09/07/[address] and cxr, no followup imaging until ED visit yesterday 05/19/25 although followup was recommended on Aug 2024 CT chest impression On hydroxychloroquine, methotrexate, and q2mos biologic IV infusions (name unsure at this time) for her rheumatoid arthritis Considering community-acquired pneumonia but must also consider gram negatives as she is immunosuppressed, less concern about aspiration Leukocytosis 13 -> 12 in past day with neutrophil predominance, consistent with suspicion of bacterial etiology - continue IV cefepime 2g q8 for now - abx spectrum to include gram negatives due to immunosuppressed status Holding methotrexate while on abx - given azithromycin 500mg, then continue 250mg daily - considering atypicals as possible contributors - pulmonology consult ordered due to recurrent nature in the context of triple immunosuppression - ordered duonebs prn - encouraged to use incentive spirometry at least hourly - follow blood and sputum cultures, adjust abx as indicated - CBC in AM - recommended to repeat cxr in 4-6wks to ensure resolution #Hyponatremia Likely hypovolemic 2/2 decreased PO intake in the setting of acute illness - ED: given 1L NS bolus, thereafter NS mIVF to start at 125cc/hr - given gluten-free diet, continue as tolerated - BMP in AM #Weakness In setting of suspected bacterial pneumonia - ambulation as tolerated - PT/OT ordered Code status: full FEN/GI: gluten free VTE ppx: none needed History of Present Illness Chief Complaint: shortness of breath, weakness Primary Care Provider: Rosario Gallagher DO Zohra is a 79yo female with PMHx prior RUL pneumonia Aug 2024, RA on plaquenil / methotrexate / biologic q2mos, migraines, GERD, HTN, anxiety, and former tobacco use presenting for worsening SOB, weakness, and fever after being seen at [facility] ED day prior 05/19/25 for similar concerns, diagnosed with RUL pneumonia as consolidation was seen on CT chest. Discharged on Augmentin 875mg BID for 10 days and benzonatate. Otherwise notes she's been having an intermittent frontal headache and decreased oral intake compared to baseline over the past 5 days. Negative for COVID/flu/RSV 05/19. States she felt well enough to go home 05/19 and endorses she slept well last night but woke up with more SOB, generalized weakness, and fever up to 103F. Endorses total of 3 doses of her Augmentin rx, then came to the ED this evening due to continuing to feel unwell. Denies any chest pain, dizziness, hemoptysis, neck pain, nausea/vomiting, abdominal pain, diarrhea, numbness/tingling of extremities. Denies any falls or trauma. Pneumonia history: 09/07/24 CT predominant groundglass opacities with areas of developing consolidation within the right upper lobe; cxr showing faint groundglass opacities in b/l upper lobes - diagnosed and treated as RUL pneumonia, with 4 days initially with doxycycline before going to ED, eventually discharged on cefdinir and azithromycin - CT impression included recommendation for followup imaging but this had not been done until CT chest on 05/19/25 Social: lives in a 2-floor independent home with her , no home O2 requirement, no daily inhalers but has previously been prescribed duonebs following pneumonia - no ambulatory support, previously no concern with stairs until today due to worsening weakness. ED course: given 2 duonebs treatments, 1L NS bolus, and started on cefepime IV Allergies Allergy/AdvReac Type Severity Reaction Status Date / Time Rlottmg-AMA-RsK Reductase Allergy Intermediate Muscle Pain Verified 01/12/23 12:54 Inhibitor [Hvycako-Nhl-Poa Reductase Inhibitor] adhesive tape Allergy Mild SKIN Verified 01/12/23 12:54 REDNESS amlodipine [From [facility]] Allergy Mild Cough Verified 01/12/23 12:54 lisinopril Allergy Mild Cough Verified 01/12/23 12:54 Home Medications Medication Instructions Recorded Confirmed Type aspirin 81 mg tablet,delayed 81 mg PO QAM 07/29/21 05/20/25 History release metoprolol succinate 25 mg 25 mg PO QAM 07/29/21 05/20/25 History tablet,extended release 24 hr omeprazole 20 mg tablet,delayed 20 mg PO QAM 07/29/21 05/20/25 History release sertraline 25 mg tablet 25 mg PO QAM 07/29/21 05/20/25 History vitamins A,C,B-dlzc-tjjexb 4,296 1 cap PO BID 07/29/21 05/20/25 History mcg-226 mg-90 mg capsule (PreserVision AREDS) cholecalciferol (vitamin D3) 25 25 mcg PO DAILY 01/12/23 05/20/25 History mcg (1,000 unit) capsule cyanocobalamin (vitamin B-12) 1,000 mcg PO DAILY 01/12/23 05/20/25 History 1,000 mcg tablet (Vitamin B-12) hydroxychloroquine 200 mg tablet 400 mg PO HS 01/12/23 05/20/25 History metronidazole 0.75 % topical cream 1 applic topical DAILY 01/12/23 05/20/25 History albuterol sulfate 90 mcg/actuation 1 - 2 inh inhalation .Q6-8H PRN sob 09/07/24 05/20/25 History aerosol inhaler folic acid 1 mg tablet 1 mg PO QAM 09/07/24 05/20/25 History methotrexate sodium 2.5 mg tablet 2.5 mg PO UD 09/07/24 05/20/25 History guaifenesin 600 mg tablet, 600 mg PO Q12 PRN cough/congestion 09/09/24 05/20/25 Rx extended release 12 hr #20 tabs amoxicillin 875 mg-potassium 1 tab PO BID 10 days #20 tabs 05/19/25 05/20/25 Rx clavulanate 125 mg tablet benzonatate 100 mg capsule 100 mg PO TID PRN cough #15 caps 05/19/25 05/20/25 Rx ciclopirox 8 % topical solution 1 applic topical HS 05/19/25 05/20/25 History fluocinonide 0.05 % topical 1 applic topical .ONCE TO TWICE 05/20/25 05/20/25 History solution DAILY levothyroxine 88 mcg tablet 88 mcg PO QAM 05/20/25 05/20/25 History (Synthroid) Past Med/Surg History Problem List (Updated 05/21/25 @ 12:12 by Fletcher Javier MD) Rheumatoid arthritis Failure of outpatient treatment (Acute) Leukocytosis (Acute) Pneumonia (Acute) SOB (shortness of breath) (Acute) Immunosuppression due to drug therapy Neutrophilic leukocytosis Ground glass opacity present on imaging of lung Hyponatremia Shortness of breath Weakness Cough (Acute) Headache (Acute) Acute hypoxic respiratory failure Hypoxia (Acute) Right upper lobe pneumonia (Acute) Bronchospasm (Acute) Pneumonia (Acute) Nonspecific paroxysmal spell Hypothyroidism 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 History of skin cancer Medical History Arthritis History of esophageal stricture GERD (gastroesophageal reflux disease) Eli's disease History of Mohs micrographic surgery for skin cancer ON NOSE Macular degeneration "BEGINING STAGES" Anxiety Migraine Hyperlipidemia "BORDERLINE" Hypertension Surgical History History of cataract surgery RT Fusion of spine CERVICAL (GOOD ROM) Family history of reaction to anesthesia MOTHER-SLOW TO WAKE UP H/O tubal ligation History of colonoscopy History of esophagogastroduodenoscopy (EGD) History of tooth extraction History of tonsillectomy and adenoidectomy Family History Other No significant family history Social History Smoking Status: Former smoker Tobacco Type: Cigarettes Cigarettes Per Day: 3-4; Smoking End Date: .; Second Hand Exposure: No; Do You Dip or Chew Tobacco: No; Tobacco Cessation Education Requested by Patient: No Hx Alcohol Use: No Hx Substance Use: No Preferred Language: Uzbek Communication Ability: Effective Hotel Maintenance Technician Required: No Beliefs That Will Affect Care: None Current Living Situation: Spouse Other Information That Helps Us Care for You: No Feels Safe at Home: Yes Safety Concerns: Feels Safe At This Time Assistive Devices: Glasses, Hospital Bed and Walker Physical Exam Physical Exam: Gen: A&Ox3, appearing in moderate distress, no supp O2, VS as above HEENT: dry oral mucus membranes, no oropharyngeal erythema or exudates; EOM intact CV: RRR, normal s1/s2, no m/r/g; 2+ radial pulses b/l, 1+ dorsalis pedis pulses b/l Resp: decreased breath sounds in R upper lung cisneros, mild expiratory stridor observed, no distinct rales/wheeze/rhonchi heard on auscultation GI/Abd: normoactive BS, abdomen soft, nontender to palpation MSK: 5/5 strength in b/l UE and LE; b/l hands and feet cool to touch (chronic); no LE edema observed nor tenderness to palpation Neuro: no facial droop, speech intact, no focal deficits observed, moves all extremities on command Skin: no rash, lesions, or ecchymoses observed Results & Data Results & Data Vital Signs (Past 12 Hours) Vital Signs Temp Pulse Pulse Resp BP BP Pulse Ox 05/20/25 18:03 87 05/20/25 17:55 86 18 129/62 94 05/20/25 17:15 39.1 C H 92 H 20 134/74 93 O2 Del Method 05/20/25 18:03 05/20/25 17:55 Room Air 05/20/25 17:15 Room Air Supervising Physician Co-Signing Physician Notes Attending Attestation & Admit Note: Pt seen/examined, chart reviewed, admit care plan d/w resident physician Arnoldo Ware. I agree w/ the poole components of his admission documentation. Very pleasant 79yo female with history of seronegative rheumatoid arthritis on plaquenil, methotrexate, and biologic therapy every 8 weeks. Also with h/o RUL pneumonia in 2023, requiring hospitalization. She improved during that hospital stay with standard CAP antibiotic coverage. Presents for 2nd time in 48 hours to [facility] ER for cough, mild dyspnea, feeling weak/fatigued/poorly, fever, etc. Denies any recent travel. Denies sick contacts. 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 Never had +TB test. Fortunately since coming back to hospital today she has not been hypoxic. PMH/PSH/allergies/meds/sochx - reviewed VSS, afebrile gen - nontoxic, NAD, mild tachypnea - but able to speak in full sentences neck - no JVD mouth - MM dry; no thrush heart - RRR, s1 s2 lungs - scant dry rales bottom most portion of both bases, but no adventitious sounds in the RUL; no wheeze/rhonchi abd - soft NT ND BS+ ext - pulses b/l feet 2+ labs reviewed CT chest reviewed from this admission and also 08/2024 - both with RUL infiltrates NO CAVITATION seen either CT EKG - my reading - NSR, no ST changes A/P: 1. RUL pneumonia - recurrent, as she had RUL pneumonia in 08/2024 as well 2. rheumatoid arthritis on biologic Rx, methotrexate, and plaquenil 3. mild hyponatremia 2nd to volume contraction 4. hypothyroidism -typical/atypical coverage likely to suffice, but can't rule out gram negative etiology given her immunosuppression; thus, Rx with cefepime/zithromax -check MRSA swab -bronchodilators as she reported these helped her breathing earlier today [place] [place] due to recurrent RUL pneumonia - underlying endobronchial lesion? underlying mass? other anatomic issue leading to recurrency in this lobe? -no dysphagia, aspiration not suspected -consider w/u for TB, but her CT does not show cavitation -gentle isotonic fluids overnight with repeat BMP am Fletcher Javier MD Resident Activity Tracking Resident Involvement: Resident Care Provided Care Provided: Adult Hospital Medicine (1) Right upper lobe pneumonia Pneumonia type: due to unspecified organism Qualified Code(s): J18.9 - Pneumonia, unspecified organism
[2025-05-20] MEDS: AZITHROMYCIN 250 MG TAB PO ONE (20:15)
[2025-05-20] MEDS: SODIUM CHLORIDE 0.9% 1,000 ML IV SCH (21:08)
[2025-05-20] MEDS ORDERED: MELATONIN 3 MG TAB PO PRN (23:31)
[2025-05-20] MEDS ORDERED: POLYETHYLENE (MIRALAX) 17 GM PACK PO PRN (23:31)
[2025-05-20] MEDS: CEROVITE ADV FORMULA TAB PO SCH (23:52)
[2025-05-20] MEDS: HYDROXYCHLOROQUINE SULFATE 200 MG TAB PO SCH (23:54)
[2025-05-21] MEDS: ACETAMINOPHEN 500 MG TAB PO PRN (00:48)
[2025-05-21] MEDS: CEFEPIME 2000MG 2,000 MG/20 ML SYR IV SCH (05:16)
[2025-05-21] MEDS: LEVOTHYROXINE SODIUM 88 MCG TABLET PO SCH (05:16)
[2025-05-21] MEDS: ALBUT/IPRATROP 3MG/0.5MG NEB 3 ML VIAL NEB PRN (06:31)
[2025-05-21 07:37] LABS: Hematocrit (blood only) 35.2 % (37.0-47.0); Hemoglobin 11.6 g/dl (12.0-16.0); Mean Corpuscular Hemoglobin 31.9 pg (25.0-34.0); Mean Corpuscular Volume 96.7 fL (80.0-100.0); Mean Platelet Volume 9.5 fL (9.4-12.4); Platelet Count 176 K/uL (130-400); RDW Coefficient of Variation 13.5 % (11.5-14.5); RDW Standard Deviation 48.5 fL (36.4-46.3); Red Blood Count 3.64 M/uL (4.20-5.40); White Blood Count 9.38 K/ul (4.8-10.8)
--- NOTE | 2025-05-21 08:04 | Hospitalist Progress Note ---
Date of Service May 21, 2025 Assessment & Plan (1) Right upper lobe pneumonia: (2) Hyponatremia: (3) Weakness: (4) Ground glass opacity present on imaging of lung: (5) Neutrophilic leukocytosis: (6) Immunosuppression due to drug therapy: Plan Zohra is a 79yo female with PMHx RA on plaquenil, methotrexate, and a biologic medication, migraines, GERD, HTN, anxiety, and former tobacco use presenting for worsening SOB, weakness, and fever, admitted for recurrent RUL pneumonia with accompanying weakness and hyponatremia, immunosuppressed. Seen here a day prior 05/19/25 for similar concerns, diagnosed with RUL pneumonia, discharged on Augmentin 875mg BID for 10 days. Negative for COVID/flu/RSV 05/19. Patient requires inpatient observation at this time for broad-spectrum IV antibiotics, IV fluid resuscitation, and pulmonary consultation due to recurrent nature of pt's RUL pneumonia in the context of immunosuppression. #Pneumonia, RUL #Immunosuppressed Recurrent with prior ground glass opacities seen on 09/07/[address] and cxr, no followup imaging until ED visit yesterday 05/19/25 although followup was recommended on Aug 2024 CT chest impression On hydroxychloroquine, methotrexate, and q2mos biologic IV infusions (name unsure at this time) for her rheumatoid arthritis Considering community-acquired pneumonia but must also consider gram negatives as she is immunosuppressed, less concern about aspiration Leukocytosis 13 -> 12 in past day with neutrophil predominance, consistent with suspicion of bacterial etiology Holding methotrexate while on abx - Patient currently on doxycycline 100mg BID and IV ceftriaxone 2g Q24H - ordered duonebs prn - encouraged to use incentive spirometry at least hourly - follow blood and sputum cultures, adjust abx as indicated - CBC in AM - recommended to repeat non-contrast CT in 4-6wks to ensure resolution #Hyponatremia Likely hypovolemic 2/2 decreased PO intake in the setting of acute illness - ED: given 1L NS bolus, thereafter NS mIVF to start at 125cc/hr - given gluten-free diet, continue as tolerated - BMP in AM #Weakness In setting of suspected bacterial pneumonia - ambulation as tolerated - PT/OT ordered Code status: full FEN/GI: gluten free VTE ppx: none needed Admission and Anticipated Discharge Date Admission Date: May 20, 2025 Supervising Physician Co-Signing Physician Notes I personally examined the patient and verified poole points of history and exam, discussed case, and agree with decision making and plan documented by Dr. Madrigal. Patient is a 79-year-old female with past medical history of rheumatoid arthritis on immunosuppressants (hydroxychloroquine, methotrexate and infliximab) presenting with right upper lobe pneumonia. Patient was seen in ED on 05/19/2025 and treated initially with Augmentin. Patient returned on 05/20 with worsening weakness, shortness of breath, and leukocytosis. Patient was evaluated by pulmonary who changed antibiotics to ceftriaxone and doxycycline for community-acquired pneumonia, TB testing ordered, recommended follow-up CT in 6 weeks to evaluate for resolution. Patient appears comfortable on RA, lungs with decreased breath sounds bilaterally with crackles upper/middle right lobe, heart regular rate and rhythm, no acute distress. Will require two step prior to discharge. Nedra Waters was seen this morning and reports feeling more tired, fatigued, and weak compared to the previous day. Patient was recently d/c yesterday on course of Augmentin abx and had only taken 3 doses prior to readmission due to worsening symptoms. Patient denies chest pain, palpitations, worsening SOB, wheeze, fevers and chills. Patient is afebrile and hemodynamically stable. Physical Exam Physical Exam: General: patient resting comfortably, NAD, non-toxic in appearance, answers questions appropriately. Skin: warm, dry, intact HEENT: NC/AT, anicteric sclera, conjunctiva without injection, moist mucus membranes. Heart: +S1/S2, regular, no m/r/g Lungs: equal air entry bilaterally, no rales/rhonchi/wheezes Abd: +BS, soft, NT/ND Ext: warm, no clubbing/cyanosis or edema Neuro: nonfocal, speech intact, no facial droop, moving all extremities. Results & Data Results & Data Vital Signs (Past 12 Hours) Vital Signs Temp Pulse Pulse Resp BP BP BP 05/21/25 07:43 37 C 100 H 18 139/66 05/21/25 06:31 83 17 05/20/25 23:30 05/20/25 23:30 05/20/25 23:30 36.9 C 94 H 16 155/71 H 05/20/25 23:06 36.3 C L 05/20/25 22:03 87 21 127/65 05/20/25 21:44 82 05/20/25 21:36 86 14 05/20/25 21:18 83 13 05/20/25 20:36 86 12 Pulse Ox O2 Del Method 05/21/25 07:43 99 Room Air 05/21/25 06:31 95 Room Air 05/20/25 23:30 Room Air 05/20/25 23:30 Room Air 05/20/25 23:30 95 Room Air 05/20/25 23:06 05/20/25 22:03 95 05/20/25 21:44 05/20/25 21:36 95 05/20/25 21:18 95 05/20/25 20:36 93 (1) Right upper lobe pneumonia Pneumonia type: due to unspecified organism Qualified Code(s): J18.9 - Pneumonia, unspecified organism
[2025-05-21 08:10] LABS: Thyroid Stimulating Hormone 1.417 uIu/ml (0.300-4.500)
[2025-05-21] MEDS: METOPROLOL SUCC 25MG EXT REL TAB PO SCH (08:21)
[2025-05-21] MEDS: SERTRALINE HCL 50 MG TABLET PO SCH (08:21)
[2025-05-21] MEDS: ASPIRIN 81 MG ECTAB PO SCH (08:21)
[2025-05-21] MEDS: PANTOprazole 40 MG TAB PO SCH (08:22)
[2025-05-21 08:43] LABS: BUN Creatinine Ratio 14.7 (10-20); Calcium 8.2 mg/dl (8.6-10.3)
[2025-05-21] MEDS: DOXYCYCLINE HYCLATE 100 MG CAP PO SCH (09:01)
--- NOTE | 2025-05-21 09:14 | Pulmonary Consultation ---
Date of Consultation May 21, 2025 Assessment & Plan (1) Pneumonia: Laterality: right Lung location: upper lobe of lung Pneumonia type: due to unspecified organism Qualified Code(s): J18.9 - Pneumonia, unspecified organism (2) SOB (shortness of breath): (3) Immunosuppression due to drug therapy: (4) Ground glass opacity present on imaging of lung: (5) Cough: Cough type: acute Qualified Code(s): R05.1 - Acute cough Plan Zohra Waters is a 79-year-old female with past medical history of rheumatoid arthritis on Plaquenil, methotrexate weekly, and biologic therapy every other month, migraines, GERD, anxiety, Hypertension, former smoker; patient presented to [facility] ED on 05/20/2025 for weakness, shortness of breath, and fevers found to have right upper lobe consolidation consistent with penumonia. RUL consolidation/Pneumonia likely community acquired v. possible opportunistic in setting of immunosuppression -CT thorax from 05/19/2025 shows RUL ground glass consolidation consistent with pneumonia. -CXR 05/20/2025 shows consolidative process in RUL consistent with CT findings. -WBC improved this am 12->9.38 -Fever curve improving -Procal 0.26 -Change ABX to ceftriaxone and doxycycline for CAP. Patient likely did not fail therapy as she had only received one dose of Augmentin. -Will reach out to her Mechatronics Technologist Dr. Yap with [facility]- confirmed to be on confirmed infliximab (Remicade) [id number]. -Will monitor clinical course patient is at risk for opportunistic infection more likely from biologic therapy which is TNF-alpha blockade as opposed MTX or Plaquenil. -Last stated TB test was reported 10 years ago with minimal exposure risk. Will order Quantiferon-TB GOLD to rule out given biologic use. -Will follow CT thorax w/o contrast in 6 weeks to evaluate RUL consolidation. -Maintain SpO2 > 92%. On room air 97% this am. Cough; shortness of breath -Guaifenesin-DM and Tessalon Perle ordered. -Start tramadol PRN for pain with coughing. -Incentive spirometry ordered Thank for allowing us to participate in this patient's care. Please call with any questions or concerns. Supervising Physician Co-Signing Physician Notes Patient seen and examined. EMR reviewed. Discussed with KARTIK as well as with patient at bedside and agree with assessment plan as noted. Do not suspect this is recurrent pneumonia as the current distribution does not appear to be consistent with her prior CT scan. I do not think this is a failure of outpatient therapy given the short period of antibiotics that she was taking at home. Would recommend treatment for community-acquired pneumonia with oral second-generation cephalosporin as well as atypical coverage (either doxycycline or azithromycin) and complete antibiotics for 5 days. She will need a follow-up CT scan in 6 to 8 weeks to document resolution. Her anti-TNF medication does increase susceptibility further infections however the patient is not had TB exposures and states she has been tested for tuberculosis on multiple occasions in the past. Do not think she requires isolation at this point in time. She does have birds at home which raises the possibility of hypersensitivity pneumonitis. If she fails to improve, additional evaluation may be warranted. Radiographic pattern may also be consistent with organizing pneumonia which may respond to steroids but given her clinical presentation currently would favor completing course of antibiotics with continued radiographic surveillance and follow-up. Continue therapy for cough. Will continue to follow with you. Feel free to contact us with questions or concerns History of Present Illness Reason for Consultation: Right upper lobe pneumonia Attending Physician: Luci Prabhakar DO History of Present Illness Zohra Waters is a 79-year-old female with past medical history of rheumatoid arthritis on Plaquenil, methotrexate weekly, and biologic therapy every other month, migraines, GERD, anxiety, Hypertension, former smoker; patient presented to [facility] ED on 05/20/2025 for weakness, shortness of breath, and fevers. Of note the patient was seen on 05/19/2025 for similar concerns and diagnosed with Right upper lobe pneumonia and prescribed Augmentin received only one dose. Patient went home where symptoms worsened with fever noted to be 103F causing her to return to the ED on 05/20/2025. Patient was admitted to the Hospitalist team for right upper lobe pneumonia and pulmonary consulted for evaluation and treatment recommendations. CT chest on initial presentation on 05/19/2025 showed ground glass consolidation consistent with pneumonia. Patient had CT thorax in August of 2024 which showed upper lobe predominant ground glass opacities with areas of developing consolidation within the right upper lobe. CXR on 05/20 showed RUL infiltrate consistent with pneumonia seen on CT thorax. As noted patient has connective tissue disease which is managed by [facility] Dr. Vigil on plaquenil, MTX weekly, and every other month biologic confirmed to be infliximab (Remicade). Patient does have three canaries at home. No other exposure to molds, chemicals, or water damage to house. Allergies Allergy/AdvReac Type Severity Reaction Status Date / Time Abqabnb-PKT-AeA Reductase Allergy Intermediate Muscle Pain Verified 01/12/23 12:54 Inhibitor [Frpauqk-Deg-Atn Reductase Inhibitor] adhesive tape Allergy Mild SKIN Verified 01/12/23 12:54 REDNESS amlodipine [From Norvasc] Allergy Mild Cough Verified 01/12/23 12:54 lisinopril Allergy Mild Cough Verified 01/12/23 12:54 Home Medications Medication Instructions Recorded Confirmed Type aspirin 81 mg tablet,delayed 81 mg PO QAM 07/29/21 05/20/25 History release metoprolol succinate 25 mg 25 mg PO QAM 07/29/21 05/20/25 History tablet,extended release 24 hr omeprazole 20 mg tablet,delayed 20 mg PO QAM 07/29/21 05/20/25 History release sertraline 25 mg tablet 25 mg PO QAM 07/29/21 05/20/25 History vitamins A,C,Z-nvxh-tszxxr 4,296 1 cap PO BID 07/29/21 05/20/25 History mcg-226 mg-90 mg capsule (PreserVision AREDS) cholecalciferol (vitamin D3) 25 25 mcg PO DAILY 01/12/23 05/20/25 History mcg (1,000 unit) capsule cyanocobalamin (vitamin B-12) 1,000 mcg PO DAILY 01/12/23 05/20/25 History 1,000 mcg tablet (Vitamin B-12) hydroxychloroquine 200 mg tablet 400 mg PO HS 01/12/23 05/20/25 History metronidazole 0.75 % topical cream 1 applic topical DAILY 01/12/23 05/20/25 History albuterol sulfate 90 mcg/actuation 1 - 2 inh inhalation .Q6-8H PRN sob 09/07/24 05/20/25 History aerosol inhaler folic acid 1 mg tablet 1 mg PO QAM 09/07/24 05/20/25 History methotrexate sodium 2.5 mg tablet 2.5 mg PO UD 09/07/24 05/20/25 History guaifenesin 600 mg tablet, 600 mg PO Q12 PRN cough/congestion 09/09/24 05/20/25 Rx extended release 12 hr #20 tabs amoxicillin 875 mg-potassium 1 tab PO BID 10 days #20 tabs 05/19/25 05/20/25 Rx clavulanate 125 mg tablet benzonatate 100 mg capsule 100 mg PO TID PRN cough #15 caps 05/19/25 05/20/25 Rx ciclopirox 8 % topical solution 1 applic topical HS 05/19/25 05/20/25 History fluocinonide 0.05 % topical 1 applic topical .ONCE TO TWICE 05/20/25 05/20/25 History solution DAILY levothyroxine 88 mcg tablet 88 mcg PO QAM 05/20/25 05/20/25 History (Synthroid) Patient History Medical History Arthritis History of esophageal stricture GERD (gastroesophageal reflux disease) Eli's disease History of Mohs micrographic surgery for skin cancer ON NOSE Macular degeneration "BEGINING STAGES" Anxiety Migraine Hyperlipidemia "BORDERLINE" Hypertension Surgical History History of cataract surgery RT Fusion of spine CERVICAL (GOOD ROM) Family history of reaction to anesthesia MOTHER-SLOW TO WAKE UP H/O tubal ligation History of colonoscopy History of esophagogastroduodenoscopy (EGD) History of tooth extraction History of tonsillectomy and adenoidectomy Family History Other No significant family history Social History Smoking Status: Former smoker Tobacco Type: Cigarettes Cigarettes Per Day: 3-4; Smoking End Date: .; Second Hand Exposure: No; Do You Dip or Chew Tobacco: No; Tobacco Cessation Education Requested by Patient: No Hx Alcohol Use: No Hx Substance Use: No Preferred Language: Congolese Communication Ability: Effective Banquet Captain Required: No Beliefs That Will Affect Care: None Current Living Situation: Spouse Other Information That Helps Us Care for You: No Feels Safe at Home: Yes Safety Concerns: Feels Safe At This Time Assistive Devices: Glasses, Hospital Bed and Walker Review of Systems 2 Review of Systems: All systems reviewed & are unremarkable except as noted in HPI & below Physical Exam 2 Physical Exam: VITALS: Reviewed. WEIGHT/BMI reviewed. GEN: Healthy appearing, well-developed, NAD. PSYCH: Good Judgment. AOx3. Normal memory, mood, and affect. NECK: Supple, with no masses. CV: RRR, no m/r/g. LUNGS: RUL crackles appreciated, JUDIT clear, diminished bilateral bases, chest rise symmetrical, breathing mildly labored. ABD: Soft, NT/ND, NBS, no masses or organomegaly. : [place] SKIN: Warm, well perfused. No skin rashes or abnormal lesions. MSK: No deformities, Normal gait. EXT: No clubbing, cyanosis, or edema. NEURO: Normal muscle strength and tone. No focal deficits. face symmetric, speech clear. Results & Data Results & Data Vital Signs (Past 12 Hours) Vital Signs Temp Pulse Pulse Resp BP BP BP 05/21/25 07:43 37 C 100 H 18 139/66 05/21/25 06:31 83 17 05/20/25 23:30 05/20/25 23:30 05/20/25 23:30 36.9 C 94 H 16 155/71 H 05/20/25 23:06 36.3 C L 05/20/25 22:03 87 21 127/65 05/20/25 21:44 82 05/20/25 21:36 86 14 05/20/25 21:18 83 13 Pulse Ox O2 Del Method 05/21/25 07:43 99 Room Air 05/21/25 06:31 95 Room Air 05/20/25 23:30 Room Air 05/20/25 23:30 Room Air 05/20/25 23:30 95 Room Air 05/20/25 23:06 05/20/25 22:03 95 05/20/25 21:44 05/20/25 21:36 95 05/20/25 21:18 95 Laboratory Results 05/21/25 07:09 05/21/25 07:09 Abnormal Lab Results 05/20/25 05/20/25 05/20/25 17:39 17:39 18:38 WBC 12.65 H RBC 4.02 L Hgb 12.9 Hct 37.9 MCV 94.3 MCH 32.1 MCHC 34.0 RDW Std Deviation 45.5 RDW Coeff of Ronda 13.2 Plt Count 222 MPV 9.6 Immature Gran % (Auto) 0.6 Neut % (Auto) 77.7 Lymph % (Auto) 4.8 [place] % (Auto) 16.8 Eos % (Auto) 0.0 Baso % (Auto) 0.1 Neut # (Auto) 9.83 H Lymph # (Auto) 0.61 L [place] # (Auto) 2.12 H Eos # (Auto) 0.00 Baso # (Auto) 0.01 Immature Gran # (Auto) 0.08 PT 10.7 INR 1.0 APTT 30 PTT Ratio 1.1 Sodium 130 L Potassium 4.4 Chloride 99 Carbon Dioxide 24 Anion Gap 7 BUN 14 Creatinine 0.79 Est Cr Clr Drug Dosing Not Reportable eGFR 76.52 BUN/Creatinine Ratio 17.7 Glucose 91 Lactate 1.6 Calcium 9.0 Magnesium 2.1 Cancelled Total Bilirubin 0.6 AST 18 ALT 14 Alkaline Phosphatase 42 Troponin I High Sens 7.7 Total Protein 6.7 Albumin 3.9 Globulin 2.8 Albumin/Globulin Ratio 1.4 TSH Nasal Screen MRSA (PCR) 05/20/25 05/21/25 20:40 07:09 WBC 9.38 RBC 3.64 L Hgb 11.6 L Hct 35.2 L MCV 96.7 MCH 31.9 MCHC 33.0 RDW Std Deviation 48.5 H RDW Coeff of Ronda 13.5 Plt Count 176 MPV 9.5 Immature Gran % (Auto) Neut % (Auto) Lymph % (Auto) [place] % (Auto) Eos % (Auto) Baso % (Auto) Neut # (Auto) Lymph # (Auto) [place] # (Auto) Eos # (Auto) Baso # (Auto) Immature Gran # (Auto) PT INR APTT PTT Ratio Sodium 133 L Potassium 4.0 Chloride 104 Carbon Dioxide 22 Anion Gap 7 BUN 10 Creatinine 0.68 Est Cr Clr Drug Dosing 69.0 eGFR 89.09 BUN/Creatinine Ratio 14.7 Glucose 91 Lactate Calcium 8.2 L Magnesium Total Bilirubin AST ALT Alkaline Phosphatase Troponin I High Sens Total Protein Albumin Globulin Albumin/Globulin Ratio TSH 1.417 Nasal Screen MRSA (PCR) Negative Diagnostic Findings Chest X-Ray 05/20/25 17:18 EXAM: Portable AP chest radiograph TECHNIQUE: AP portable radiograph of the chest was obtained. INDICATION: Chest pain Comparison: Chest radiograph and CT thorax September 07, 2024 FINDINGS: LINES and TUBES: None CARDIOVASCULAR: Cardiac silhouette is stably and mildly enlarged in size. Atherosclerosis of the thoracic aorta. LUNGS/PLEURA: Mild pulmonary vascular congestion and chronic interstitial lung changes are similar to the previous radiograph. There is a new confluent opacity in the right upper lobe of the lung measuring 4.0 cm in size. No significant pleural fluid. No discernible pneumothorax. OSSEOUS/OTHER: No displaced acute osseous process identified. IMPRESSION: New confluent opacity measuring 4.0 cm in size over the right upper lobe of the lung. Given the previous radiographic and CT findings, this may represent a pneumonia in the right upper lobe. Recommend follow-up radiograph in 4-6 weeks after appropriate treatment to ensure resolution of this finding and to exclude other processes including neoplasm. Electronically signed by Adrien Tucker 05-20-2025 6:30 PM PG Care Time/CCT Total # of Minutes Spent Total Time Spent with Patient: Total time spent is greater than 50% in coordination of care (as documented) at patient's floor/unit and/or counseling patient: Coding Level of Care Code 23382 INT INP/OBS CARE 2/55MIN Diagnoses Pneumonia J18.9 Laterality: right Lung location: upper lobe of lung Pneumonia type: due to unspecified organism SOB (shortness of breath) R06.02 Immunosuppression due to drug therapy D84.821 Ground glass opacity present on imaging of lung R91.8 Cough R05.1 Cough type: acute
[2025-05-21] MEDS: guaiFENesin/DEXTROM SYRUP 200MG/20MG 10ML UDC PO PRN (10:00)
--- NOTE | 2025-05-21 12:10 | Billing Data ---
Date of Service May 20, 2025 Coding Level of Care Code 98944 INT INP/OBS CARE
[2025-05-21] MEDS: cefTRIAXone SODIUM 2,000 MG/50 ML BAG IV SCH (12:29)
[2025-05-21] MEDS: traMADol HCL 50 MG TABLET PO PRN (12:49)
[2025-05-21] MEDS: BENZONATATE 100 MG CAPSULE PO PRN (12:49)
[2025-05-21] MEDS: COUGH DROP (SUGAR FREE) LOZ 24 LOZ/1 BOX BUCCAL ONE (12:49)
[2025-05-22 06:35] LABS: Basophils # (auto) 0.02 K/uL (0.00-0.20); Basophils % (auto) 0.2 %; Eosinophils # (auto) 0.01 K/uL (0.00-0.50); Eosinophils % (auto) 0.1 %; Hematocrit (blood only) 31.9 % (37.0-47.0); Hemoglobin 10.6 g/dl (12.0-16.0); Immature Granulocytes # (auto) 0.08 K/uL (0.01-0.20); Immature Granulocytes % (auto) 0.9 %; Lymphocytes # (auto) 0.67 K/uL (1.20-3.40); Lymphocytes % (auto) 7.2 %; Mean Corpuscular Hemoglobin 31.8 pg (25.0-34.0); Mean Corpuscular Hgb Conc 33.2 g/dL (32.0-36.0); Mean Corpuscular Volume 95.8 fL (80.0-100.0); Monocytes # (auto) 1.21 K/uL (0.11-0.59); Neutrophils # (auto) 7.33 K/uL (1.40-6.50); Neutrophils % (auto) 78.6 %; Platelet Count 157 K/uL (130-400); RDW Coefficient of Variation 13.8 % (11.5-14.5); Red Blood Count 3.33 M/uL (4.20-5.40); White Blood Count 9.32 K/ul (4.8-10.8)
[2025-05-22 07:02] LABS: BUN Creatinine Ratio 10.7 (10-20); Creatinine Clr Calc Pharmacy 83.7 ml/min; Potassium 3.6 mmol/L (3.5-5.1)
[2025-05-22] MEDS ORDERED: traMADol HCL 50 MG TABLET PO PRN (08:15)
[2025-05-22] MEDS: guaiFENesin/DEXTROM SYRUP 200MG/20MG 10ML UDC PO SCH (08:56)
[2025-05-22] MEDS: HYDROcodone/HOMATROPINE SYRUP 5MG/1.5MG 5ML UDP PO SCH (08:56)
--- NOTE | 2025-05-22 09:14 | Medical Student Progress Note ---
Date of Service May 22, 2025 Assessment & Plan (1) Right upper lobe pneumonia: Pneumonia type: due to unspecified organism Qualified Code(s): J18.9 - Pneumonia, unspecified organism (2) Hyponatremia: (3) Weakness: (4) Ground glass opacity present on imaging of lung: (5) Neutrophilic leukocytosis: (6) Immunosuppression due to drug therapy: Shanthi العلي is a 79yo female with PMHx RA on plaquenil, methotrexate, and a biologic medication, migraines, GERD, HTN, anxiety, and former tobacco use presenting for worsening SOB, weakness, and fever, admitted for recurrent RUL pneumonia on 05/20 with accompanying weakness and hyponatremia, immunosuppressed. Seen here a day prior 05/19/25 for similar concerns, diagnosed with RUL pneumonia, discharged on Augmentin 875mg BID for 10 days. Negative for COVID/flu/RSV 05/19. Patient requires inpatient observation at this time for broad-spectrum IV antibiotics, IV fluid resuscitation, and pulmonary consultation due to recurrent nature of pt's RUL pneumonia in the context of immunosuppression. #Pneumonia, RUL #Immunosuppressed Recurrent with prior ground glass opacities seen on 09/07/[address] and cxr, no followup imaging until ED visit 05/19/25 although followup was recommended on Aug 2024 CT chest impression On hydroxychloroquine, methotrexate, and q2mos infliximab IV infusions for her rheumatoid arthritis Considering community-acquired pneumonia but must also consider gram negatives as she is immunosuppressed, less concern about aspiration Admitted with leukocytosis 12.65, trending downwards since antibiotic initiation. Currently 9.32 Holding methotrexate while on abx - Patient currently on doxycycline 100mg BID and IV ceftriaxone 2g Q24H, per pulmonary recommendation - Tb tests pending, unlikely considering patient has tested negative multiple times in past and minimal risk factors outside of immunosuppression - ordered duonebs QID - encouraged to use incentive spirometry at least hourly - follow blood cultures, adjust abx as indicated - CBC in AM - recommended to repeat non-contrast CT in 4-6wks to ensure resolution #Mild Hyponatremia #Mild Normocytic Anemia #Mild Hypocalcemia Likely due to dilutional effect after starting fluids. Patient denied active bleeding including hematochezia. - Continue NS mIVF at 125cc/hr for hypovolemia - given gluten-free diet, continue as tolerated - BMP and CBC in AM - Na trending upward, 133 --> 134, HgB trending downwards 12.9 --> 11.6 --> 10.6, Ca 8.2 --> 8.0 #Weakness In setting of suspected bacterial pneumonia - ambulation as tolerated - PT/OT ordered: patient would benefit from inpatient rehabilitation, confirm with PT #Chronic Neck Pain Appears MSK in etiology based on tenderness of palpation of paraspinals and trapezius - topical lidocaine 4% PRN, continue to monitor Code status: full FEN/GI: gluten free VTE ppx: none needed Admission and Anticipated Discharge Date Admission Date: May 20, 2025 Supervising Attestation I personally examined the patient and verified poole points of history and exam, discussed case, and agree with decision making and plan documented by Dr. Madrigal and Abdulkadir AQUINO. Patient reports improvement of symptoms, still has cough but breathing overall improved. Subjective Patient is AOx3 and sitting up in bed this AM. No overnight events. She appears less fatigued and endorses worsened dry cough and SOB, but her weakness is much improved. She also notes b/l dull headache worsened by coughing and relieved with acetominophen, and chronic muscular neck stiffness alleviated with topical lidocaine at home. She required two nebulizer treatments overnight. She is ambulating with a walker to bathroom. Denies chest pain, palpitations, fever/chills, loss of appetite, rash, N/V, hematochezia. Review of Systems Review of Systems: as per HPI Physical Exam Constitutional: NAD, well nourished, AOx 3 Neck: PERRL, EOMI, no lymphadenopathy Respiratory: Diminished breath sounds in all lobes. Clear to ausculation b/l, equal chest rise and fall. Cardiovascular: RRR, no M/R/G. S1 and S2 present. 2+ peripheral pulses Gastrointestinal (Abdomen): Soft, NT/ND, + BS in all 4 quadrants Musculoskeletal: Some tenderness to palpation of cervical paraspinal muscles and right side of trapezius. No vertebral point tenderness, sensory function intact, 5/5 strength. Results & Data Vital Signs (Past 12 Hours) Vital Signs Temp Pulse Resp BP Pulse Ox O2 Del Method O2 Flow Rate 05/22/25 07:15 36.6 C 79 16 127/78 97 Nasal Cannula 2 05/22/25 02:23 90 18 94 Nasal Cannula 1 05/21/25 20:50 81 95 Room Air 05/21/25 20:33 37.2 C 88 20 130/73 95 Room Air 05/21/25 20:30 Room Air Resident Activity Tracking Resident Involvement: Resident Care Provided Care Provided: Adult Hospital Medicine Resident Supervision Co-Signing Physician Notes I examined the patient along with Dr. Prabhakar and Abdulkadir AQUINO. Patient is improving from a respiratory standpoint and has been steadily improving with less SOB today; Still does endorse a dry cough and did briefly require 2L O2 via NC this AM but since has been hemodynamically stable, afebrile, on room air and able to work with PT/OT without complaint. Quantiferon Gold testing negative. Will require repeat chest CT in 4-6 weeks to ensure resolution. Anticipate d/c on abx in the next few days.
[2025-05-22] MEDS ORDERED: LIDOCAINE 4% CREAM 15 GM TUBE EXT PRN (10:48)
[2025-05-22] MEDS: ALBUT/IPRATROP 3MG/0.5MG NEB 3 ML VIAL NEB SCH (11:17)
[2025-05-22 11:30] LABS: Quantiferon Nil 0.958 IU/mL; Quantiferon TB2 0.936 IU/mL
--- NOTE | 2025-05-22 13:28 | Pulmonology Progress Note ---
Date of Service May 22, 2025 Assessment & Plan (1) Pneumonia: Laterality: right Lung location: upper lobe of lung Pneumonia type: due to unspecified organism Qualified Code(s): J18.9 - Pneumonia, unspecified organism (2) SOB (shortness of breath): (3) Immunosuppression due to drug therapy: (4) Ground glass opacity present on imaging of lung: (5) Cough: Cough type: acute Qualified Code(s): R05.1 - Acute cough Plan Zohra Waters is a 79-year-old female with past medical history of rheumatoid arthritis on Plaquenil, methotrexate weekly, and biologic therapy every other month, migraines, GERD, anxiety, Hypertension, former smoker; patient presented to [facility] ED on 05/20/2025 for weakness, shortness of breath, and fevers found to have right upper lobe consolidation consistent with penumonia. RUL consolidation/Pneumonia likely community acquired v. possible opportunistic in setting of immunosuppression -CT thorax from 05/19/2025 shows RUL ground glass consolidation consistent with pneumonia. -CXR 05/20/2025 shows consolidative process in RUL consistent with CT findings. -WBC stable -Fever curve improving -Procal 0.26 -Change ABX to ceftriaxone and doxycycline for CAP. Patient likely did not fail therapy as she had only received one dose of Augmentin. -Patient's Film Sound Coordinator Dr. Yap with [facility]- confirmed patient is on infliximab (Remicade) q2olkff. -Will monitor clinical course patient is at risk for opportunistic infection more likely from biologic therapy which is TNF-alpha blockade as opposed MTX or Plaquenil. -Last stated TB test was reported 10 years ago with minimal exposure risk. Will order Quantiferon-TB GOLD to rule out given biologic use. -Will follow CT thorax w/o contrast in 6 weeks to evaluate RUL consolidation. -Maintain SpO2 > 92%. On room air 97% this am. Cough; shortness of breath -Guaifenesin-DM and Tessalon Perle ordered. -Cont tramadol PRN at 25mg for pain with coughing. -Start Hydrocodone-homatropine q6h -Incentive spirometry ordered Thank for allowing us to participate in this patient's care. Please call with any questions or concerns. Admission and Anticipated Discharge Date Admission Date: May 22, 2025 Supervising Physician Co-Signing Physician Notes Patient seen and examined. EMR reviewed. Discussed with bedside nurse. The patient states that she is feeling a little bit better. She is able to ambulate to the restroom but continues to have a nonproductive cough. The tramadol did cause some excessive sedation. Working on different medications to control cough. Her cough remains nonproductive. She has not required supplemental oxygen but will require formal assessment prior to discharge. Plans are to complete course of oral antibiotics with follow-up CT scan in 6 weeks. Advised the patient that she can potentially dismiss from the hospital once she feels stable with regards to ambulation. This may happen as soon as tomorrow. She expressed understanding and is in agreement with the plan as outlined Subjective Patient states that her breathing is much improved but her cough persists and during the episodes she gets short of breath. Hydrocodone-homatropine syrup scheduled to assist with cough suppression. Patient says the tramadol helped with the pain and allowed her to sleep overnight though she only took half the dose. Tramadol decreased to 25mg PRN. SpO2 97% on room air. Review of Systems 2 Review of Systems: All systems reviewed & are unremarkable except as noted in HPI & below Physical Exam 2 Physical Exam: VITALS: Reviewed. WEIGHT/BMI reviewed. GEN: Healthy appearing, well-developed, NAD. PSYCH: Good Judgment. AOx3. Normal memory, mood, and affect. NECK: Supple, with no masses. CV: RRR, no m/r/g. LUNGS: RUL crackles appreciated, JUDIT clear, diminished bilateral bases, chest rise symmetrical, breathing mildly labored. + chest pain right upper lobe ABD: Soft, NT/ND, NBS, no masses or organomegaly. : [place] SKIN: Warm, well perfused. No skin rashes or abnormal lesions. MSK: No deformities, Normal gait. EXT: No clubbing, cyanosis, or edema. NEURO: Normal muscle strength and tone. No focal deficits. face symmetric, speech clear. Results & Data Results & Data Vital Signs (Past 12 Hours) Vital Signs Temp Pulse Resp BP Pulse Ox O2 Del Method O2 Flow Rate 05/22/25 11:20 85 18 92 Room Air 05/22/25 09:00 Room Air 05/22/25 07:15 36.6 C 79 16 127/78 97 Nasal Cannula 2 05/22/25 02:23 90 18 94 Nasal Cannula 1 Laboratory Results 05/22/25 06:15 05/22/25 06:15 Abnormal Lab Results 05/21/25 05/22/25 09:53 06:15 WBC 9.32 RBC 3.33 L Hgb 10.6 L Hct 31.9 L MCV 95.8 MCH 31.8 MCHC 33.2 RDW Std Deviation 48.0 H RDW Coeff of Ronda 13.8 Plt Count 157 MPV 10.0 Immature Gran % (Auto) 0.9 Neut % (Auto) 78.6 Lymph % (Auto) 7.2 [place] % (Auto) 13.0 Eos % (Auto) 0.1 Baso % (Auto) 0.2 Neut # (Auto) 7.33 H Lymph # (Auto) 0.67 L [place] # (Auto) 1.21 H Eos # (Auto) 0.01 Baso # (Auto) 0.02 Immature Gran # (Auto) 0.08 Sodium 134 L Potassium 3.6 Chloride 107 Carbon Dioxide 22 Anion Gap 5 BUN 6 Creatinine 0.56 L Est Cr Clr Drug Dosing 83.7 eGFR 93.36 BUN/Creatinine Ratio 10.7 Glucose 99 Calcium 8.0 L TB Test (QFT) Gold Plus NEGATIVE TB Test (QFT) Nil 0.958 TB Test (QFT) Mitogen 10.000 TB Test (QFT) Ag 1 1.050 TB Test (QFT) Ag 2 0.936 Diagnostic Findings No recent studies. PG Care Time/CCT Total # of Minutes Spent Total Time Spent with Patient: Total time spent is greater than 50% in coordination of care (as documented) at patient's floor/unit and/or counseling patient: Coding Level of Care Code 56161 SUB INP/OBS CARE 2/35MIN Diagnoses Pneumonia J18.9 Laterality: right Lung location: upper lobe of lung Pneumonia type: due to unspecified organism SOB (shortness of breath) R06.02 Immunosuppression due to drug therapy D84.821 Ground glass opacity present on imaging of lung R91.8 Cough R05.1 Cough type: acute
--- NOTE | 2025-05-22 15:53 | Electrocardiogram Report ---
Test Reason : Blood Pressure : */* mmHG Vent. Rate : 91 BPM Atrial Rate : 91 BPM P-R Int : 150 ms QRS Dur : 76 ms QT Int : 332 ms P-R-T Axes : 12 10 18 degrees QTcB Int : 408 ms Normal sinus rhythm Normal ECG When compared with ECG of 07-Sep-2024 08:59, No significant change was found Confirmed by Dewayne Funk ([id number] on 05/22/2025 3:53:11 PM Referred By: REFERRED SELF Confirmed By: Dewayne Funk
[2025-05-23 06:31] LABS: Basophils # (auto) 0.02 K/uL (0.00-0.20); Basophils % (auto) 0.2 %; Eosinophils # (auto) 0.04 K/uL (0.00-0.50); Eosinophils % (auto) 0.5 %; Hematocrit (blood only) 33.2 % (37.0-47.0); Hemoglobin 11.3 g/dl (12.0-16.0); Immature Granulocytes # (auto) 0.11 K/uL (0.01-0.20); Immature Granulocytes % (auto) 1.3 %; Lymphocytes # (auto) 0.56 K/uL (1.20-3.40); Lymphocytes % (auto) 6.7 %; Mean Corpuscular Hemoglobin 31.9 pg (25.0-34.0); Mean Corpuscular Volume 93.8 fL (80.0-100.0); Mean Platelet Volume 9.6 fL (9.4-12.4); Monocytes # (auto) 0.91 K/uL (0.11-0.59); Monocytes % (auto) 10.9 %; Neutrophils # (auto) 6.69 K/uL (1.40-6.50); Neutrophils % (auto) 80.4 %; Platelet Count 203 K/uL (130-400); RDW Coefficient of Variation 13.5 % (11.5-14.5); Red Blood Count 3.54 M/uL (4.20-5.40); White Blood Count 8.33 K/ul (4.8-10.8)
[2025-05-23 06:44] LABS: BUN Creatinine Ratio 10.4 (10-20); Calcium 8.6 mg/dl (8.6-10.3); Creatinine Clr Calc Pharmacy 97.7 ml/min; Potassium 3.5 mmol/L (3.5-5.1)
--- NOTE | 2025-05-23 08:50 | Pulmonology Progress Note ---
Date of Service May 23, 2025 Assessment & Plan (1) Pneumonia: Laterality: right Lung location: upper lobe of lung Pneumonia type: due to unspecified organism Qualified Code(s): J18.9 - Pneumonia, unspecified organism (2) SOB (shortness of breath): (3) Immunosuppression due to drug therapy: (4) Ground glass opacity present on imaging of lung: (5) Cough: Cough type: acute Qualified Code(s): R05.1 - Acute cough Plan Zohra Waters is a 79-year-old female with past medical history of rheumatoid arthritis on Plaquenil, methotrexate weekly, and biologic therapy every other month, migraines, GERD, anxiety, Hypertension, former smoker; patient presented to [facility] ED on 05/20/2025 for weakness, shortness of breath, and fevers found to have right upper lobe consolidation consistent with penumonia. Recommendations: 1. Community-acquired pneumonia: Continue ceftriaxone and doxycycline. Can transition to Ceftin and doxycycline to complete 7 days of therapy as an outpatient when the patient is felt appropriate for discharge. She will require a follow-up noncontrast CT scan in 6 to 8 weeks. 2. Cough: Improving. Continue symptomatic therapy including Tessalon and guaifenesin as well as hydrocodone homatroprine as needed. Patient had a good response to tramadol if the above are ineffective. 3. Dyspnea: Likely multifactorial. Improving. She is not hypoxemic. Patient may be able to be dismissed from the hospital when she feels that she can ambulate safely. I would be happy to see her back in the pulmonary clinic in 6 weeks with a follow-up CT scan if needed. Pulmonary will sign off. Feel free to contact us with questions or concerns Admission and Anticipated Discharge Date Admission Date: May 22, 2025 Subjective Patient seen and examined. EMR reviewed. The patient reports that she continues to show slow and steady improvement. She thinks she is 10% better than yesterday and was improved yesterday compared to the day prior. Her cough is less. She is not producing any phlegm. She continues to experience some shortness of breath with physical activity however this is also improving. She was able to sleep last night. She is not experiencing any chest pain. No fevers chills night sweats or other constitutional symptoms Review of Systems 2 Review of Systems: All systems reviewed & are unremarkable except as noted in Subjective Physical Exam 2 Physical Exam: VITALS: Reviewed. WEIGHT/BMI reviewed. GEN: Healthy appearing, well-developed, NAD. PSYCH: Good Judgment. AOx3. Normal memory, mood, and affect. NECK: Supple, with no masses. CV: RRR, no m/r/g. LUNGS: No wheezing or crackles ABD: Soft, NT/ND, NBS, no masses or organomegaly. : [place] SKIN: Warm, well perfused. No skin rashes or abnormal lesions. MSK: No deformities, Normal gait. EXT: No clubbing, cyanosis, or edema. NEURO: Normal muscle strength and tone. No focal deficits. face symmetric, speech clear. Results & Data Results & Data Vital Signs (Past 12 Hours) Vital Signs Temp Pulse Resp BP Pulse Ox O2 Del Method 05/23/25 08:28 Room Air 05/23/25 08:02 36.8 C 97 H 18 149/79 H 92 Room Air 05/23/25 07:04 91 H 17 94 Room Air 05/23/25 03:34 90 18 92 Room Air 05/22/25 21:40 Room Air Laboratory Results 05/23/25 06:04 05/23/25 06:04 Cultures no growth to date Diagnostic Findings No new imaging PG Care Time/CCT Total # of Minutes Spent Total Time Spent with Patient: Total time spent is greater than 50% in coordination of care (as documented) at patient's floor/unit and/or counseling patient: Coding Level of Care Code 41385 SUB INP/OBS CARE 2/35MIN Diagnoses Pneumonia J18.9 Laterality: right Lung location: upper lobe of lung Pneumonia type: due to unspecified organism SOB (shortness of breath) R06.02 Immunosuppression due to drug therapy D84.821 Ground glass opacity present on imaging of lung R91.8 Cough R05.1 Cough type: acute
[2025-05-23] MEDS ORDERED: ALBUT/IPRATROP 3MG/0.5MG NEB 3 ML VIAL NEB PRN (10:20)
--- NOTE | 2025-05-23 15:55 | Medical Student Progress Note ---
Date of Service May 23, 2025 Assessment & Plan (1) Right upper lobe pneumonia: Pneumonia type: due to unspecified organism Qualified Code(s): J18.9 - Pneumonia, unspecified organism (2) Hyponatremia: (3) Weakness: (4) Ground glass opacity present on imaging of lung: (5) Neutrophilic leukocytosis: (6) Immunosuppression due to drug therapy: Shanthi العلي is a 79yo female with PMHx RA on plaquenil, methotrexate, and a biologic medication, migraines, GERD, HTN, anxiety, and former tobacco use presenting for worsening SOB, weakness, and fever, admitted for recurrent RUL pneumonia on 05/20 with accompanying weakness and hyponatremia, immunosuppressed. Seen here a day prior 05/19/25 for similar concerns, diagnosed with RUL pneumonia, discharged on Augmentin 875mg BID for 10 days. Negative for COVID/flu/RSV 05/19. Patient requires inpatient observation at this time for broad-spectrum IV antibiotics, IV fluid resuscitation, and pulmonary consultation due to recurrent nature of pt's RUL pneumonia in the context of immunosuppression. #Pneumonia, RUL #Immunosuppressed Recurrent with prior ground glass opacities seen on 09/07/[address] and cxr, no followup imaging until ED visit 05/19/25 although followup was recommended on Aug 2024 CT chest impression On hydroxychloroquine, methotrexate, and q2mos infliximab IV infusions for her rheumatoid arthritis Considering community-acquired pneumonia but must also consider gram negatives as she is immunosuppressed, less concern about aspiration Admitted with leukocytosis 12.65, trending downwards since antibiotic initiation. Currently 9.32 Holding methotrexate while on abx - Patient currently on doxycycline 100mg BID and IV ceftriaxone 2g Q24H, per pulmonary recommendation - Tb tests pending, unlikely considering patient has tested negative multiple times in past and minimal risk factors outside of immunosuppression - ordered duonebs QID - encouraged to use incentive spirometry at least hourly - follow blood cultures, adjust abx as indicated - CBC in AM - recommended to repeat non-contrast CT in 4-6wks to ensure resolution #Mild Hyponatremia #Mild Normocytic Anemia #Mild Hypocalcemia Likely due to dilutional effect after starting fluids. Patient denied active bleeding including hematochezia. - Continue NS mIVF at 125cc/hr for hypovolemia - given gluten-free diet, continue as tolerated - BMP and CBC in AM - Na trending upward, 133 --> 134, HgB trending downwards 12.9 --> 11.6 --> 10.6, Ca 8.2 --> 8.0 #Weakness In setting of suspected bacterial pneumonia - ambulation as tolerated - PT/OT ordered #Chronic Neck Pain Appears MSK in etiology based on tenderness of palpation of paraspinals and trapezius - topical lidocaine 4% PRN, continue to monitor Code status: full FEN/GI: gluten free VTE ppx: none needed Admission and Anticipated Discharge Date Admission Date: May 22, 2025 Supervising Attestation I personally examined the patient and verified poole points of history and exam, discussed case, and agree with decision making and plan documented by Dr. Madrigal and Abdulkadir AQUINO. Subjective Patient has made modest improvements in SOB and cough when seen this AM. Patient is seen completing her 2-step testing and requires supplemental oxygen due to SpO2 desat to 87% towards the end of her loop around the 3rd floor. When patient is seated she is slightly flushed, but able to speak clearly without cough and reports that typically she is more active at home and does not have any baseline oxygen requirements while at home. Patient is amenable to staying in the hospital for one more day while her respiratory status improves. Patient denies chest pain, palpitations, wheeze, headache, fevers, and chills. Patient is afebrile and hemodynamically stable. Review of Systems Review of Systems: as per HPI Results & Data Vital Signs (Past 12 Hours) Vital Signs Temp Pulse Resp BP Pulse Ox O2 Del Method 05/23/25 08:02 36.8 C 97 H 18 149/79 H 92 Room Air 05/23/25 07:04 91 H 17 94 Room Air 05/23/25 03:34 90 18 92 Room Air 05/22/25 21:40 Room Air
--- NOTE | 2025-05-23 16:26 | Hospitalist Progress Note ---
Date of Service May 23, 2025 Assessment & Plan (1) Right upper lobe pneumonia: (2) Hyponatremia: (3) Weakness: (4) Ground glass opacity present on imaging of lung: (5) Neutrophilic leukocytosis: (6) Immunosuppression due to drug therapy: (7) Pneumonia: (8) Shortness of breath: (9) Hypoxia: Plan Zohra is a 79yo female with PMHx RA on plaquenil, methotrexate, and a biologic medication, migraines, GERD, HTN, anxiety, and former tobacco use presenting for worsening SOB, weakness, and fever, admitted for recurrent RUL pneumonia on 05/20 with accompanying weakness and hyponatremia, immunosuppressed. Seen here a day prior 05/19/25 for similar concerns, diagnosed with RUL pneumonia, discharged on Augmentin 875mg BID for 10 days. Negative for COVID/flu/RSV 05/19. Patient requires inpatient observation at this time for broad-spectrum IV antibiotics, IV fluid resuscitation, and pulmonary consultation due to recurrent nature of pt's RUL pneumonia in the context of immunosuppression. #Pneumonia, RUL w/ associated hypoxia on exertion #Immunosuppressed Recurrent with prior ground glass opacities seen on 09/07/[address] and cxr, no followup imaging until ED visit 05/19/25 although followup was recommended on Aug 2024 CT chest impression On hydroxychloroquine, methotrexate, and q2mos infliximab IV infusions for her rheumatoid arthritis Considering community-acquired pneumonia but must also consider gram negatives as she is immunosuppressed, less concern about aspiration Admitted with leukocytosis 12.65, trending downwards since antibiotic initiation. Currently 9.32 Holding methotrexate while on abx - Patient currently on doxycycline 100mg BID and IV ceftriaxone 2g Q24H, per pulmonary recommendation - Tb tests pending, unlikely considering patient has tested negative multiple times in past and minimal risk factors outside of immunosuppression - ordered duonebs QID - encouraged to use incentive spirometry at least hourly - follow blood cultures, adjust abx as indicated - CBC/BMP QAM - Likely D/C tomorrow; Outpatient Ceftin/doxycycline abx x7 days, recommended to repeat non-contrast CT in 4-6wks to ensure resolution, and 1 week 2L supplemental oxygen will be given for home due to desaturations to 87% during 2-step testing. #Mild Hyponatremia #Mild Normocytic Anemia #Mild Hypocalcemia Likely due to dilutional effect after starting fluids. Patient denied active bleeding including hematochezia. - Continue NS mIVF at 125cc/hr for hypovolemia - given gluten-free diet, continue as tolerated - BMP and CBC in AM - Na trending upward, 133 --> 134, HgB trending downwards 12.9 --> 11.6 --> 10.6, Ca 8.2 --> 8.0 #Weakness In setting of suspected bacterial pneumonia - ambulation as tolerated - PT/OT ordered: patient would benefit from inpatient rehabilitation, confirm with PT #Chronic Neck Pain Appears MSK in etiology based on tenderness of palpation of paraspinals and trapezius - topical lidocaine 4% PRN, continue to monitor Code status: full FEN/GI: gluten free VTE ppx: none needed Admission and Anticipated Discharge Date Admission Date: May 22, 2025 Supervising Physician Co-Signing Physician Notes I personally examined the patient and verified poole points of history and exam, discussed case, and agree with decision making and plan documented by Dr. Madrigal. Patient with improvement of respiratory symptoms, she did have some desaturation with ambulation and will likely require some oxygen on discharge. She has been transition to Ceftin and doxycycline to complete 7 days of treatment per pulmonary recommendations. Follow-up CT right knee recommended in 6 to 8 weeks to ensure resolution. Patient will likely be discharged home with home health and supplemental oxygen tomorrow. Subjective Patient has made modest improvements in SOB and cough when seen this AM. Patient is seen completing her 2-step testing and requires supplemental oxygen due to SpO2 desat to 87% towards the end of her loop around the 3rd floor. When patient is seated she is slightly flushed, but able to speak clearly without cough and reports that typically she is more active at home and does not have any baseline oxygen requirements while at home. Patient is amenable to staying in the hospital for one more day while her respiratory status improves. Patient denies chest pain, palpitations, wheeze, headache, fevers, and chills. Patient is afebrile and hemodynamically stable. Physical Exam Physical Exam: General: patient resting comfortably, NAD, non-toxic in appearance, answers questions appropriately. Skin: warm, dry, intact HEENT: NC/AT, anicteric sclera, conjunctiva without injection, moist mucus membranes. Heart: +S1/S2, regular, no m/r/g Lungs: equal air entry bilaterally, no rales/rhonchi/wheezes Abd: +BS, soft, NT/ND Ext: warm, no clubbing/cyanosis or edema Neuro: nonfocal, speech intact, no facial droop, moving all extremities. Results & Data Results & Data Vital Signs (Past 12 Hours) Vital Signs Temp Pulse Pulse Pulse Pulse Pulse Resp 05/23/25 15:49 37.0 C 84 16 05/23/25 09:20 115 H 109 H 117 H 93 H 05/23/25 08:28 05/23/25 08:02 36.8 C 97 H 18 05/23/25 07:04 91 H 17 Resp Resp Resp Resp BP Pulse Ox Pulse Ox 05/23/25 15:49 162/82 H 90 05/23/25 09:20 25 H 22 27 H 18 88 L 05/23/25 08:28 05/23/25 08:02 149/79 H 92 05/23/25 07:04 94 Pulse Ox Pulse Ox Pulse Ox O2 Del Method O2 Flow Rate O2 Flow Rate 05/23/25 15:49 Room Air 05/23/25 09:20 93 87 L 95 1 2 05/23/25 08:28 Room Air 05/23/25 08:02 Room Air 05/23/25 07:04 Room Air Resident Activity Tracking Resident Involvement: Resident Care Provided Care Provided: Adult Hospital Medicine (1) Right upper lobe pneumonia Pneumonia type: due to unspecified organism Qualified Code(s): J18.9 - Pneumonia, unspecified organism (7) Pneumonia Laterality: bilateral Lung location: upper lobe of lung Pneumonia type: due to unspecified organism Qualified Code(s): J18.9 - Pneumonia, unspecified organism
[2025-05-23 19:40] VITALS: RESP 18
[2025-05-24 08:01] VITALS: PULSE 87; TEMP 98.1; O2SAT 93
[2025-05-24 08:15] LABS: Basophils # (auto) 0.03 K/uL (0.00-0.20); Basophils % (auto) 0.3 %; Eosinophils # (auto) 0.11 K/uL (0.00-0.50); Eosinophils % (auto) 1.2 %; Hematocrit (blood only) 32.9 % (37.0-47.0); Hemoglobin 11.4 g/dl (12.0-16.0); Immature Granulocytes # (auto) 0.24 K/uL (0.01-0.20); Immature Granulocytes % (auto) 2.7 %; Mean Corpuscular Hgb Conc 34.7 g/dL (32.0-36.0); Mean Corpuscular Volume 92.4 fL (80.0-100.0); Mean Platelet Volume 9.9 fL (9.4-12.4); Monocytes # (auto) 1.22 K/uL (0.11-0.59); Monocytes % (auto) 13.7 %; Neutrophils # (auto) 6.51 K/uL (1.40-6.50); Neutrophils % (auto) 73.1 %; Platelet Count 286 K/uL (130-400); RDW Coefficient of Variation 13.4 % (11.5-14.5); RDW Standard Deviation 45.7 fL (36.4-46.3); Red Blood Count 3.56 M/uL (4.20-5.40); White Blood Count 8.91 K/ul (4.8-10.8)
[2025-05-24 08:36] LABS: BUN Creatinine Ratio 14.9 (10-20); Calcium 8.9 mg/dl (8.6-10.3); Creatinine Clr Calc Pharmacy 99.8 ml/min; Potassium 3.3 mmol/L (3.5-5.1)
[2025-05-24 10:23] VITALS: BP 155/71
--- NOTE | 2025-05-24 10:27 | Discharge Summary ---
Date of Service May 24, 2025 Admission HPI Per Admitting Provider Zohra is a 79yo female with PMHx prior RUL pneumonia Aug 2024, RA on plaquenil / methotrexate / biologic q2mos, migraines, GERD, HTN, anxiety, and former tobacco use presenting for worsening SOB, weakness, and fever after being seen at [facility] ED day prior 05/19/25 for similar concerns, diagnosed with RUL pneumonia as consolidation was seen on CT chest. Discharged on Augmentin 875mg BID for 10 days and benzonatate. Otherwise notes she's been having an intermittent frontal headache and decreased oral intake compared to baseline over the past 5 days. Negative for COVID/flu/RSV 05/19. States she felt well enough to go home 05/19 and endorses she slept well last night but woke up with more SOB, generalized weakness, and fever up to 103F. Endorses total of 3 doses of her Augmentin rx, then came to the ED this evening due to continuing to feel unwell. Denies any chest pain, dizziness, hemoptysis, neck pain, nausea/vomiting, abdominal pain, diarrhea, numbness/tingling of extremities. Denies any falls or trauma. Pneumonia history: 09/07/24 CT predominant groundglass opacities with areas of developing consolidation within the right upper lobe; cxr showing faint groundglass opacities in b/l upper lobes - diagnosed and treated as RUL pneumonia, with 4 days initially with doxycycline before going to ED, eventually discharged on cefdinir and azithromycin - CT impression included recommendation for followup imaging but this had not been done until CT chest on 05/19/25 Social: lives in a 2-floor independent home with her , no home O2 requirement, no daily inhalers but has previously been prescribed duonebs following pneumonia - no ambulatory support, previously no concern with stairs until today due to worsening weakness. ED course: given 2 duonebs treatments, 1L NS bolus, and started on cefepime IV Admission Exam Per Admitting Provider Gen: A&Ox3, appearing in moderate distress, no supp O2, VS as above HEENT: dry oral mucus membranes, no oropharyngeal erythema or exudates; EOM intact CV: RRR, normal s1/s2, no m/r/g; 2+ radial pulses b/l, 1+ dorsalis pedis pulses b/l Resp: decreased breath sounds in R upper lung cisneros, mild expiratory stridor observed, no distinct rales/wheeze/rhonchi heard on auscultation GI/Abd: normoactive BS, abdomen soft, nontender to palpation MSK: 5/5 strength in b/l UE and LE; b/l hands and feet cool to touch (chronic); no LE edema observed nor tenderness to palpation Neuro: no facial droop, speech intact, no focal deficits observed, moves all extremities on command Skin: no rash, lesions, or ecchymoses observed Principal Diagnosis RUL Pneumonia Discharge Exam Constitutional: well-appearing, no acute distress HEENT: NCAT, no conjunctival injection CV: extremities well-perfused, no LE edema Resp: no increased work of breathing GI: nondistended MSK: no gross deformities appreciated Skin: warm, dry, no rash appreciated Neuro: alert, oriented, no focal neurologic deficit appreciated Discharge Data Allergies Allergy/AdvReac Type Severity Reaction Status Date / Time Hoyllad-ONK-HuJ Reductase Allergy Intermediate Muscle Pain Verified 01/12/23 12:54 Inhibitor [Dszvjos-Toh-Brq Reductase Inhibitor] adhesive tape Allergy Mild SKIN Verified 01/12/23 12:54 REDNESS amlodipine [From Norvasc] Allergy Mild Cough Verified 01/12/23 12:54 lisinopril Allergy Mild Cough Verified 01/12/23 12:54 Consultations 05/20/25 19:05 ED Decision to Admit Stat 05/20/25 20:24 Consult Pulmonology Routine Hospital Course (1) Right upper lobe pneumonia: (2) Hyponatremia: (3) Weakness: (4) Ground glass opacity present on imaging of lung: (5) Neutrophilic leukocytosis: (6) Immunosuppression due to drug therapy: (7) Pneumonia: (8) Shortness of breath: (9) Hypoxia: Shanthi العلي is a 79yo female with PMHx RA on plaquenil, methotrexate, and a biologic medication, migraines, GERD, HTN, anxiety, and former tobacco use presenting for worsening SOB, weakness, and fever, admitted for recurrent RUL pneumonia on 05/20 with accompanying weakness and hyponatremia, immunosuppressed. Seen here a day prior 05/19/25 for similar concerns, diagnosed with RUL pneumonia, discharged on Augmentin 875mg BID for 10 days. Negative for COVID/flu/RSV 05/19. Patient requires inpatient observation at this time for broad-spectrum IV antibiotics, IV fluid resuscitation, and pulmonary consultation due to recurrent nature of pt's RUL pneumonia in the context of immunosuppression. #Pneumonia, RUL w/ associated hypoxia on exertion #Immunosuppressed Recurrent with prior ground glass opacities seen on 09/07/[address] and cxr, n o followup imaging until ED visit 05/19/25 although followup was recommended on Aug 2024 CT chest impression On hydroxychloroquine, methotrexate, and q2mos infliximab IV infusions for her rheumatoid arthritis Considering community-acquired pneumonia but must also consider gram negatives as she is immunosuppressed, less concern about aspiration Admitted with leukocytosis 12.65, trending downwards since antibiotic initiation. Currently 9.32 Holding methotrexate while on abx - Patient currently on doxycycline 100mg BID and IV ceftriaxone 2g Q24H, per pulmonary recommendation - Tb tests pending, unlikely considering patient has tested negative multiple times in past and minimal risk factors outside of immunosuppression - ordered duonebs QID - encouraged to use incentive spirometry at least hourly - follow blood cultures, adjust abx as indicated - CBC/BMP QAM Outpatient Ceftin/doxycycline abx x7 days, recommended to repeat non-contrast CT in 4-6wks to ensure resolution, and 1 week 2L supplemental oxygen will be given for home due to desaturations to 87% during 2-step testing. #Mild Hyponatremia #Mild Normocytic Anemia #Mild Hypocalcemia Likely due to dilutional effect after starting fluids. Patient denied active bleeding including hematochezia. - Continue NS mIVF at 125cc/hr for hypovolemia - given gluten-free diet, continue as tolerated - BMP and CBC in AM - Na trending upward, 133 --> 134, HgB trending downwards 12.9 --> 11.6 --> 10.6, Ca 8.2 --> 8.0 #Weakness In setting of suspected bacterial pneumonia - ambulation as tolerated - PT/OT ordered: patient would benefit from inpatient rehabilitation, confirm with PT #Chronic Neck Pain Appears MSK in etiology based on tenderness of palpation of paraspinals and trapezius - topical lidocaine 4% PRN, continue to monitor Code status: full FEN/GI: gluten free VTE ppx: none needed Total Time Total Time Spent Total Time Spent (In Minutes): see attending documentation Discharge Plan Discharge Items Patient Disposition: Home - Self-Care Reason For Visit: WORSENING SOB, WEAKNESS, FEVER Discharge Diagnosis: Pneumonia Condition on Discharge: Fair Activity: Resume your previous activity Activity Comment: as tolerated Non-emergency contact: Primary Care Provider Call non-emergency contact if: you have any medication questions, your symptoms worsen and you have a fever Follow-up/Referrals: Maribeth Bautista CRNP [Outside Practitioners] - (Date & Time 05/30/2025 9:40 AM Provider: Radha Marcelo CRNP [facility]) Diet: Regular Addtl Attending Provider Instructions: You were admitted to the hospital for shortness of breath and low oxygen. You were found to have pneumonia. You were treated with antibiotics and oxygen. You will be discharge with an additional 7 days of antibiotics. We will also send you home with oxygen to use while finishing antibiotics. You should have a follow up CT scan of your chest in 4-6 weeks to ensure the pneumonia has re solved. You should discuss this with your primary care provider. A discharge summary will be sent to your primary care physician to ensure continuity of care. Please bring this discharge summary with you to your next office appointment so that your provider can review it at that time. Follow-up appointments: Make a follow-up appointment with your PCP within the next week. It is very important that you follow up with them shortly after discharge from the hospital. Keep all your follow-up appointments as already scheduled. If you cannot make an appointment, notify your provider. Medications: Your medication list has been reviewed and reconciled upon discharge to ensure accuracy and continuity of care. An updated list of all your medications is included with your hospital discharge paperwork. Please review this list closely, and make note of any changes. We sent a new medication called cefuroxime to your pharmacy. Take cefuroxime (500mg) one tablet twice daily for 7 days. We sent a new medication called doxycycline to your pharmacy. Take doxycycline (100mg) one tablet twice daily for 7 days. We sent a new medication called albuterol to your pharmacy. Take alb uterol 2 puffs every 4 hours as needed for shortness of breath or wheezing. If you have any issues filling these prescriptions, please call [phone] and ask to leave a message for Dr. Luis Antonio Phan. Take your medications as instructed; do not skip a dose of your medicines. Make sure all of your doctors know every medicine you are taking (including dndh-hec-tytuvav medicines, vitamins, and supplements). Call your primary care provider before taking any new medicines (including bqyb-hwv-jvdejgc medicines, vitamins, and supplements), because some of these may interact with your current medications, or may make your symptoms worse. Tell your primary care provider if you cannot afford your medications. CONTACT YOUR PRIMARY CARE PROVIDER if you experience any of the following: Increased shortness of breath Fever Difficulty following your treatment plan, or difficulty taking medications CALL 911 OR GO TO THE EMERGENCY DEPARTMENT if you experience any of the following: Sudden, severe abdominal pain or nausea/vomiting Severe chest pain, or chest pain that radiates (moves) to your jaw or arm Sudden, severe shortness of breath or difficulty breathing Thank you for allowing us to participate in your care. Pending Studies at Discharge: No Stand-Alone Forms: My [facility] Medications and DC Order Prescriptions: New doxycycline hyclate 100 mg capsule 100 mg PO BID 7 Days Qty: 14 0RF cefuroxime axetil 500 mg tablet 500 mg PO BID 7 Days Qty: 14 0RF albuterol sulfate [Ventolin HFA] 90 mcg/actuation HFA aerosol inhaler 2 inh inhalation Q4H PRN (Reason: shortness of breath or wheezing) Qty: 6.7 0RF codeine-guaifenesin 10-100 mg/5 mL liquid 5 ml PO Q6H Qty: 120 0RF Continued cyanocobalamin (vitamin B-12) [Vitamin B-12] 1,000 mcg tablet 1,000 mcg PO DAILY cholecalciferol (vitamin D3) 25 mcg (1,000 unit) capsule 25 mcg PO DAILY metronidazole 0.75 % cream 1 applic topical DAILY Rx Instructions: last filled 04/18 30 day hydroxychloroquine 200 mg tablet 400 mg PO HS aspirin 81 mg Tablet,Delayed Release (Dr/Ec) 81 mg PO QAM sertraline 25 mg Tablet 25 mg PO QAM metoprolol succinate 25 mg Tablet Extended Release 24 Hr 25 mg PO QAM PreserVision AREDS [phone] [id number] Capsule 1 cap PO BID omeprazole 20 mg Tablet,Delayed Release (Dr/Ec) 20 mg PO QAM methotrexate sodium 2.5 mg tablet 2.5 mg PO UD Rx Instructions: on hold due to illness 20 mg (2.5 mg x8 tablets) weekly folic acid 1 mg tablet 1 mg PO QAM albuterol sulfate 90 mcg/actuation HFA aerosol inhaler 1 - 2 inh inhalation .Q6-8H PRN (Reason: sob) Rx Instructions: last filled 08/22/25 guaifenesin 600 mg tablet extended release 12hr 600 mg PO Q12 PRN (Reason: cough/congestion) Qty: 20 0RF ciclopirox 8 % solution 1 applic TOPICAL HS benzonatate 100 mg capsule 100 mg PO TID PRN (Reason: cough) Qty: 15 0RF levothyroxine [Synthroid] 88 mcg tablet 88 mcg PO QAM Rx Instructions: AT LEAST 30 MINUTES PRIOR TO BREAKFAST OR OTHER MEDICATION fluocinonide 0.05 % solution 1 applic TOPICAL .ONCE TO TWICE DAILY Discontinued amoxicillin-pot clavulanate 875-125 mg tablet 1 tab PO BID 10 Days Qty: 20 0RF Discharge Orders: Discharge Order (Routine); Ordered 05/24/25 Ordered By: Luis Antonio Rodriguez/Other Patient Handouts: Preventing Pneumonia, Treating Pneumonia Admission Data Admit Date/Time: 05/22/25 11:21 Attending Provider: Luci Prabhakar Admit Provider: Arnoldo Ware V. Primary Care Provider: Rosario Gallagher Other Providers: Walker Myers; Michael Adorno; [facility] Fax Other Interventions: Discharge Summary Assessment (RN) Last Done: 05/24/25 10:22 Supervising Physician Co-Signing Physician Notes I personally examined the patient and verified poole points of history and exam, discussed case, and agree with decision making and plan documented by Dr. Phan. Patient is a 79-year-old female with past medical history of rheumatoid arthritis on immunosuppressants (hydroxychloroquine, methotrexate and infliximab) presenting with right upper lobe pneumonia. Patient was seen in ED on 05/19/2025 and treated initially with Augmentin. Patient returned on 05/20 with worsening weakness, shortness of breath, and leukocytosis. Patient was evaluated by pulmonary who changed antibiotics to ceftriaxone and doxycycline for community-acquired pneumonia, TB testing negative. Patient with improvement of respiratory symptoms, she did have some desaturation with ambulation/exertion, was sent home with supplemental oxygen, she has a pulse oximeter at home. Patient transitioned to Ceftin and doxycycline to complete 7 days of treatment per pulmonary recommendations. Follow-up CT right knee recommended in 6 to 8 weeks to ensure resolution. Albuterol inhaler and spacer provided on discharge. Patient will followup with PCP in next week. Total attending time 35 minutes Resident Activity Tracking Resident Involvement: Resident Care Provided Care Provided: Adult [facility]
--- NOTE | 2025-05-27 15:23 | Coding Query ---
CODING QUERY To promote full compliance with coding requirements relating to patient care, provider participation is requested in all cases of table and desk finisher uncertainty. Please assist us with the question(s) below: Coding Question(s): It was stated in several Progress Notes " Considering community-acquired pneumonia but must also consider gram negatives as she is immunosuppressed." Please clarify if the pnuemonia was cause by a gram negative bacteria or something else. Physician's Response(s): Unclear pathogen of pneumonia Thank you Nikia Lanier Principal Diagnosis: "that condition established after study, to be chiefly responsible for occasioning the admission of the patient to the hospital for care." Co-Existing Principal Diagnosis: "when two or more diagnoses equally meet the criteria for principal diagnosis as determined by the circumstances of admission, diagnostic work up, and/or therapy provided, and the Alphabetic Index, Tabular List, or another coding guideline does not provide sequencing direction, any one of the diagnoses may be sequenced first." "When the physician has documented what appears to be a current diagnosis in the body of the record, but has not included the diagnosis in the final diagnostic statement, the physician should be asked whether the diagnosis should be added." (Source Coding [facility] 2 QTR90. p3-4) MIKEL
== END 2025-05-24 11:44 | disposition home health service (06) | DRG 194 ==
LOC: ED 17:13 → 3E 17:13 → SUATTDRO 20:04 → 3E 23:08